=== PATIENT | male | born 1955 | race Caucasian/White ===

== ENCOUNTER → 2017-04-11 | Outpatient (CLI) | payer BC ==
[~2017-04-11] MED LIST: GADOXETATE DISODIUM (NON-WT BASED PROCEDURE) IV PRN; MULT-513 PO; OMEG10007 PO; PROT1POW PO
--- NOTE | 2017-04-11 08:45 | DIAGNOSTIC IMAGING REPORT ---
MRI LIVER COMBO CLINICAL HISTORY: ANEMIA,LIVER LESION TECHNIQUE: Imaging was performed prior to and following IV contrast injection. The patient was administered 10 cc of intravenous Eovist COMPARISON STUDY: CT scan the abdomen pelvis dated 08/15/2014 FINDINGS: There are scattered T2 bright nonenhancing hepatic lesions, consistent with small cysts. The largest is located within the left lobe measuring 1 cm. No splenic masses are visualized. There is a 4 mm T2 bright pancreatic tail lesion, likely representing a sidebranch IPMN. No solid renal masses are visualized. There are few tiny renal cysts the largest of which measures 6 mm. No adrenal masses are visualized. There is no pathologic adenopathy. There is no evidence of abdominal aortic dilatation. There is no ductal dilatation. IMPRESSION: 1. Small hepatic cysts, the largest of which measures 1 cm 2. 4 mm T2 bright pancreatic tail lesion, likely representing a side branch IPMN Electronically signed by: Mason Miller M.D. 04/11/2017 8:43 AM Dictated Date/Time: 04/11/2017 8:29 AM
== END | disposition home or self-care (01) ==
LOC: C.MRI 07:17
PROVIDERS: ATTEND Physician Assistant
DX: D50.0 Iron deficiency anemia secondary to blood loss (chronic) (principal); K76.9 Liver disease, unspecified

== ENCOUNTER → 2017-04-12 | Day surgery (SDC) | payer BC ==
[2017-04-11 11:20] VITALS: Ht 177.8 cm; Wt 77.3 kg
[~2017-04-12] VITALS: Ht 177.8 cm; Wt 77.3 kg
[~2017-04-12] MED LIST changes: +FENTANYL CITRATE INJ 50 MCG/1 ML 2 ML VIAL ONE; -GADOXETATE DISODIUM (NON-WT BASED PROCEDURE) IV PRN; +LIDOCAINE HCL 2% 2 ML VIAL (20MG/ML) ONE; +ONDANSETRON INJ 2 MG/ML 2 ML VIAL IV PRN; +PROPOFOL IV EMULSION 10 MG/ML 20 ML VIAL IV ONE
[2017-04-12 11:14] VITALS: TEMP 36.4
--- NOTE | 2017-04-12 11:22 | Endo History and Physical ---
History & Physical Date of Service: Apr 12, 2017. Chief Complaint: anemia due to possible blood loss Referring Physician: Tyra Henning PA-C History of Present Illness The patient presents for an upper endoscopy and colonoscopy to evaluate anemia. He has had several procedures in the past without a specific explanation. He denies having nausea or vomiting but does admit to epigastric discomfort. Past Surgical History Hx Cardiac Surgery: Yes (CARDIAC ABLATION) Hx Internal Defibrillator: No Hx Pacemaker: No Hx Abdominal Surgery: No Hx of Implantable Prosthesis: No Hx Post-Op Nausea and Vomiting: No Hx Cancer Surgery: Yes (BCC REMOVALS) Hx Thoracic Surgery: No Hx Orthopedic: No Hx Urinary Tract Surgery: No No abdominal surgeries Family History None Social History Smoking Status: Never Smoker Hx Substance Use: No Hx Alcohol Use: Yes (1 DRINK/WEEKEND) Allergies Coded Allergies: Monosodium Glutamate (Verified Allergy, Severe, NERVOUS, 04/11/17) NERVOUS CONDITION FOR 2-3 DAYS Morphine (Verified Allergy, Severe, COULD NOT URINATE, 04/11/17) Influenza Virus Vaccine H5N1 (Verified Allergy, Intermediate, PURITIS AND RASH, 04/11/17) Carbamazepine (Verified Allergy, Unknown, HIVES, 04/11/17) Current Medications Reported Home Medications Medications Dose Route/Sig Max Daily Dose Days Date Category [place]-3 (Fish Oil) 1 Ea Cap 1 Cap PO DAILY 04/11/17 Reported Protein 1 Pow Pow 1 Dose PO DAILY 04/11/17 Reported Mvi With Minerals (Multivitamins/Minerals) Tab 1 Tab PO DAILY 05/29/14 Reported Vital Signs Weight (Kilograms): 77.27 Height (Feet): 5 Height (Inches): 10 Date Time Temp Pulse Resp B/P (MAP) Pulse Ox O2 Delivery O2 Flow Rate FiO2 04/12/17 11:14 36.4 59 18 126/67 (86) 99 Room Air Physical Exam General Appearance: no apparent distress Respiratory/Chest: Auscultation: breath sounds normal Cardiovascular: Heart Auscultation: RRR Abdomen: Inspection & Palpation: soft Assessment and Plan Patient referred for upper endoscopy and colonoscopy seen anemia and epigastric discomfort. We've discussed the risks and benefits to include bleeding, infection, perforation and missed colon polyps.
--- NOTE | 2017-04-12 11:53 | Discharge Instructions ---
Endoscopy Patient Instructions Date / Procedure(s) Performed Apr 12, 2017. Colonoscopy, EGD Allergy Information Coded Allergies: Monosodium Glutamate (Verified Allergy, Severe, NERVOUS, 04/11/17) NERVOUS CONDITION FOR 2-3 DAYS Morphine (Verified Allergy, Severe, COULD NOT URINATE, 04/11/17) Influenza Virus Vaccine H5N1 (Verified Allergy, Intermediate, PURITIS AND RASH, 04/11/17) Carbamazepine (Verified Allergy, Unknown, HIVES, 04/11/17) Discharge Date / Findings Apr 12, 2017. Mild atrophy of the stomach, biopsied Normal appearing small intestine Diverticulosis of the left colon Internal hemorrhoids Medication Instructions Restart Stopped Medication(s): Reported Home Medications Medications Dose Route/Sig Max Daily Dose Days Date Category [place]-3 (Fish Oil) 1 Ea Cap 1 Cap PO DAILY 04/11/17 Reported Protein 1 Pow Pow 1 Dose PO DAILY 04/11/17 Reported Mvi With Minerals (Multivitamins/Minerals) Tab 1 Tab PO DAILY 05/29/14 Reported Provider Instructions Activity Restrictions - No exercising or heavy lifting for 24 hours. - Do not drink alcohol the day of the procedure. - Do not drive a car or operate machinery until the day after the procedure. - Do not make any important decisions or sign important papers in 24 hours after the procedure. Following Day: - Return to full activity which may include returning to work/school. Diet Start your diet with liquids and light foods (jello, soup, juice, toast). Then eat your usual diet if not nauseated. Treatment For Common After Affects For mild abdominal pain, bloating, or excessive gas: - Rest - Eat lightly - Lie on right side Follow-Up Information Follow-up with Tyra Henning PA-C as scheduled Await pathology results Begin an iron supplement twice daily for 6 weeks then 1 time daily Wireless capsule endoscopy to be ordered based on allergy Lab entered for celiac screening to be done in the next 1-2 weeks Anesthesia Information What You Should Know You have had a procedure that required some medicine to reduce anxiety and discomfort. This treatment is called moderate sedation. After receiving the treatment, you may be sleepy, but you will be able to breathe on your own. The effects of the treatment may last for several hours. Follow these instructions along with Activity/Diet recommendations noted above: * Do NOT do anything where dizziness or clumsiness would be dangerous. * Rest quietly at home today, then you can be up and about tomorrow. * Have a responsible person stay with you the rest of today. * You may have had an I.V. today. If so, you may take the dressing off later today. Recommendations Call your doctor if: * Trouble breathing * Continuous vomiting for more than 24 hours * Temperature above 101 degrees * Severe abdominal pain or bloating * Pain not relieved by pain medicine ordered * There is increased drainage or redness from any incision * A large amount of rectal bleeding greater than 2-3 tablespoons. (If you had a polyp/s removed or have hemorrhoids, a small amount of blood - from the rectum is to be expected.) * You have any unanswered questions or concerns. IN THE EVENT OF A SERIOUS EMERGENCY, GO TO THE NEAREST EMERGENCY ROOM Your discharge instructions were prepared by provider Halle Hansen. Patient Instructions Signature Page Carson Reyna Patient (or Guardian) Signature/Date: I have read and understand the instructions given to me by my caregivers. Caregiver/RN/Doctor Signature/Date: The above-named patient and/or guardian has received patient instructions on this date. + Original Patient Signature Page (only) stays with chart. Please make copy for patient.
--- NOTE | 2017-04-12 11:56 | GI REPORT ---
Procedure Date: 04/12/2017 11:20 AM Procedure: Upper GI endoscopy Indications: Iron deficiency anemia Medicines: Monitored Anesthesia Care Complications: No immediate complications. Estimated blood loss: Minimal. Estimated Blood Loss: Estimated blood loss was minimal. Procedure: Pre-Anesthesia Assessment: - Prior to the procedure, a History and Physical was performed, and patient medications, allergies and sensitivities were reviewed. The patient's tolerance of previous anesthesia was reviewed. - The risks and benefits of the procedure and the sedation options and risks were discussed with the patient. All questions were answered and informed consent was obtained. - Patient identification and proposed procedure were verified prior to the procedure by the physician, the nurse and the underwear finisher. The procedure was verified in the procedure room. - Pre-procedure physical examination revealed no contraindications to sedation. - ASA Grade Assessment: II - A patient with mild systemic disease. - After reviewing the risks and benefits, the patient was deemed in satisfactory condition to undergo the procedure. - The anesthesia plan was to use monitored anesthesia care (MAC). - Immediately prior to administration of medications, the patient was re-assessed for adequacy to receive sedatives. - The heart rate, respiratory rate, oxygen saturations, blood pressure, adequacy of pulmonary ventilation, and response to care were monitored throughout the procedure. - The physical status of the patient was re-assessed after the procedure. After obtaining informed consent, the endoscope was passed under direct vision. Throughout the procedure, the patient's blood pressure, pulse, and oxygen saturations were monitored continuously. The scope was introduced through the mouth, and advanced to the third part of duodenum. The upper GI endoscopy was accomplished without difficulty. The patient tolerated the procedure well. Findings: The examined esophagus was normal. The Z-line was regular and was found 40 cm from the incisors. Diffuse atrophic mucosa was found in the entire examined stomach. Biopsies were taken with a cold forceps for histology. Estimated blood loss was minimal. The examined duodenum was normal. Biopsies for histology were taken with a cold forceps for evaluation of celiac disease. Estimated blood loss was minimal. Impression: - Normal esophagus. - Z-line regular, 40 cm from the incisors. - Gastric mucosal atrophy. Biopsied. - Normal examined duodenum. Biopsied. Recommendation: - Perform a colonoscopy today. - Await pathology results. Halle Hansen D.O. Halle Hansen DO 04/12/2017 11:55:41 AM This report has been signed electronically. Note Initiated On: 04/12/2017 11:20 AM I attest to the content of the Intraoperative Record and orders documented therein, exceptions below
--- NOTE | 2017-04-12 12:02 | GI REPORT ---
Procedure Date: 04/12/2017 11:33 AM Procedure: Colonoscopy Indications: High risk colon cancer surveillance: Personal history of colonic polyps, Iron deficiency anemia Medicines: Monitored Anesthesia Care Complications: No immediate complications. Estimated blood loss: Minimal. Estimated Blood Loss: Estimated blood loss was minimal. Procedure: Pre-Anesthesia Assessment: - Prior to the procedure, a History and Physical was performed, and patient medications, allergies and sensitivities were reviewed. The patient's tolerance of previous anesthesia was reviewed. - The risks and benefits of the procedure and the sedation options and risks were discussed with the patient. All questions were answered and informed consent was obtained. - Patient identification and proposed procedure were verified prior to the procedure by the physician, the nurse and the sales representative church furniture. The procedure was verified in the procedure room. - Pre-procedure physical examination revealed no contraindications to sedation. - ASA Grade Assessment: II - A patient with mild systemic disease. - After reviewing the risks and benefits, the patient was deemed in satisfactory condition to undergo the procedure. - The anesthesia plan was to use monitored anesthesia care (MAC). - Immediately prior to administration of medications, the patient was re-assessed for adequacy to receive sedatives. - The heart rate, respiratory rate, oxygen saturations, blood pressure, adequacy of pulmonary ventilation, and response to care were monitored throughout the procedure. - The physical status of the patient was re-assessed after the procedure. After I obtained informed consent, the scope was passed under direct vision. Throughout the procedure, the patient's blood pressure, pulse, and oxygen saturations were monitored continuously. The On-site loaner was introduced through the anus and advanced to the terminal ileum. The colonoscopy was performed without difficulty. The patient tolerated the procedure well. The quality of the bowel preparation was good. Findings: The perianal and digital rectal examinations were normal. Pertinent negatives include normal sphincter tone. The terminal ileum appeared normal. Normal cecal retroflexion Multiple medium-mouthed diverticula were found in the sigmoid colon and in the descending colon. Internal hemorrhoids were found during retroflexion. The hemorrhoids were mild. The exam was otherwise without abnormality. Impression: - The examined portion of the ileum was normal. - Mild diverticulosis in the sigmoid colon and in the descending colon. - Internal hemorrhoids. - The examination was otherwise normal. - No specimens collected. Recommendation: - Discharge patient to home (ambulatory). - Advance diet as tolerated today. - Perform a serologic workup for celiac disease. - To visualize the small bowel, perform video capsule endoscopy at appointment to be scheduled. - Repeat colonoscopy in 5 years for surveillance. Halle Hansen D.O. Halle Hansen, DO 04/12/2017 12:02:16 PM This report has been signed electronically. Note Initiated On: 04/12/2017 11:33 AM I attest to the content of the Intraoperative Record and orders documented therein, exceptions below
--- NOTE | 2017-04-12 12:15 | Anesthesiology Progress Note ---
Anesthesia Post Op Note Date & Time Apr 12, 2017 at 12:15 Vital Signs Pain Intensity: 0 Vital Signs Past 12 Hours Date Time Temp Pulse Resp B/P (MAP) Pulse Ox O2 Delivery O2 Flow Rate FiO2 04/12/17 11:59 59 18 100/66 (77) 100 Room Air 04/12/17 11:54 52 18 88/51 (63) 99 Room Air 04/12/17 11:14 36.4 59 18 126/67 (86) 99 Room Air Notes Mental Status: alert / awake / arousable, participated in evaluation Pt Amnestic to Procedure: Yes Nausea / Vomiting: adequately controlled Pain: adequately controlled Airway Patency, RR, SpO2: stable & adequate BP & HR: stable & adequate Hydration State: stable & adequate Anesthetic Complications: no major complications apparent
[2017-04-12 12:30] VITALS: BP 110/66; PULSE 52; O2SAT 100
== END | disposition home or self-care (01) ==
LOC: C.GI 10:59
PROVIDERS: ATTEND Internal Medicine
DX: Z12.11 Encounter for screening for malignant neoplasm of colon (principal); Z86.010 Personal history of colon polyps; D50.9 Iron deficiency anemia, unspecified; K57.30 Diverticulosis of large intestine without perforation or abscess without bleeding; K64.8 Other hemorrhoids; K29.50 Unspecified chronic gastritis without bleeding
CPT/HCPCS: 43239; G0105

== ENCOUNTER 2021-06-19 09:06 | Inpatient (IN) ==
[2021-06-19] MEDS ORDERED: LORazepam 2 MG/4 ML VIAL ONE (09:20)
[2021-06-19] MEDS ORDERED: LORazepam 2 MG/ML VIAL (IM USE) ONE (09:21)
--- NOTE | 2021-06-19 09:43 | Emergency Department Note ---
History of Present Illness General Chief Complaint: Arrhythmia/Palpitations Stated Complaint: SWEATY/SOB/RAPID HEARTBEAT Time Seen by Provider: 06/19/21 09:14 History of Present Illness Provider Complaint: + "heart racing" and + palpitations Time: 06:15 Duration: + Worsening Severity: severe Maximum Pain Intensity: 9 Current Pain Intensity: 9 Context: + occurred during rest Arrhythmia history: + history of ablation, + history of electrical cardioversion and + other (atrial flutter) Associated symptoms: + chest pain, + near-syncope and + nausea; no shortness of breath, no cough or no paresthesias Home Medications Medication Instructions Recorded Confirmed Type aspirin 325 mg tablet (Pietro 325 mg PO Q6H PRN 06/19/21 06/19/21 History Aspirin) Allergies Allergy/AdvReac Type Severity Reaction Status Date / Time monosodium glutamate Allergy Severe NERVOUS Verified 06/19/21 10:55 morphine Allergy Severe COULD NOT Verified 06/19/21 10:55 URINATE influenza virus vaccine, Allergy Intermediate PURITIS Verified 06/19/21 10:55 specific AND RASH carbamazepine Allergy Unknown HIVES Verified 06/19/21 10:55 Past Med/Surg History Medical History Atrial flutter No pertinent family history Small bowel obstruction Surgical History History of cardiac radiofrequency ablation (RFA) Hx of knee surgery Social History Smoking Status: Never smoker Hx Alcohol Use: No Hx Substance Use: No Preferred Language: Urdu Communication Ability: Effective Furniture Repairer Required: No Beliefs That Will Affect Care: None Current Living Situation: Spouse Other Information That Helps Us Care for You: No Feels Safe at Home: Yes Safety Concerns: Feels Safe At This Time Assistive Devices: None Review of Systems A total of 10 systems reviewed and were otherwise negative Physical Exam Vital Signs: Vital Signs - 24 hr 06/19/21 09:08 06/19/21 09:20 06/19/21 09:22 Temperature 36.0 C L Temperature Source Temporal Artery Sc an Pulse Rate 195 H Pulse Rate [Apical ] 199 H 194 H Pulse Rate from Sp O2 Sensor Respiratory Rate 20 18 12 Respiratory Effort / Characteristics Non-Labored Sponta neous Respiratory Depth Normal Respiratory Patter n Regular Blood Pressure 69/45 L Blood Pressure [Ri ght Arm] 77/63 L 92/63 L Blood Pressure Alexandra n 53 Blood Pressure Alexandra n [Right Arm] 67 72 Pulse Oximetry 97 93 97 Oxygen Delivery Me thod Room Air Sepsis Recent Feve r Within 48 Hours No Sepsis New/Unexpla ined Change in Men kale Status No Sepsis Action Take n by Nursing No Action Required 06/19/21 09:25 06/19/21 09:27 06/19/21 09:30 Temperature Temperature Source Pulse Rate 56 L Pulse Rate [Apical ] 55 L Pulse Rate from Sp O2 Sensor 56 L Respiratory Rate 16 13 Respiratory Effort / Characteristics Respiratory Depth Respiratory Patter n Blood Pressure 101/70 Blood Pressure [Ri ght Arm] 111/65 Blood Pressure Alexandra n 80 Blood Pressure Alexandra n [Right Arm] 80 Pulse Oximetry 96 100 Oxygen Delivery Me thod Room Air Sepsis Recent Feve r Within 48 Hours Sepsis New/Unexpla ined Change in Men kale Status Sepsis Action Take n by Nursing 06/19/21 09:52 06/19/21 10:00 06/19/21 10:01 Temperature Temperature Source Pulse Rate 63 55 L Pulse Rate [Apical ] 56 L Pulse Rate from Sp O2 Sensor Respiratory Rate 16 14 14 Respiratory Effort / Characteristics Respiratory Depth Respiratory Patter n Blood Pressure 109/65 100/61 Blood Pressure [Ri ght Arm] 100/61 Blood Pressure Alexandra n 79 74 Blood Pressure Alexandra n [Right Arm] 74 Pulse Oximetry 99 98 99 Oxygen Delivery Me thod Room Air Sepsis Recent Feve r Within 48 Hours Sepsis New/Unexpla ined Change in Men kale Status Sepsis Action Take n by Nursing 06/19/21 10:15 06/19/21 10:30 Temperature Temperature Source Pulse Rate 57 L 62 Pulse Rate [Apical ] Pulse Rate from Sp O2 Sensor Respiratory Rate 12 14 Respiratory Effort / Characteristics Respiratory Depth Respiratory Patter n Blood Pressure 94/62 L Blood Pressure [Ri ght Arm] Blood Pressure Alexandra n 72 Blood Pressure Alexandra n [Right Arm] Pulse Oximetry 100 97 Oxygen Delivery Me thod Sepsis Recent Feve r Within 48 Hours Sepsis New/Unexpla ined Change in Men kale Status Sepsis Action Take n by Nursing Physical Exam: Physical Exam GENERAL: Patient appears distressed and ill. Tachycardic patient appears distressed and ill. HENT: Exam performed. - Head: Normocephalic and atraumatic. - Right Ear: External ear normal. No mastoid tenderness. - Left Ear: External ear normal. No mastoid tenderness. - Mouth/Throat: The oropharynx is clear and moist. No trismus in the jaw. No dental abscesses or uvula swelling. No oropharyngeal exudate or tonsillar abscesses. EYES: Conjunctivae and EOM are normal. Pupils are equal, round, and reactive to light. Right eye exhibits no discharge. Left eye exhibits no discharge. No scleral icterus. NECK: Normal range of motion. Neck supple. No JVD present. No spinous process tenderness present. No carotid bruit present. No rigidity. No tracheal deviation and normal range of motion present. No Brudzinski's sign and no Kernig's sign noted. CV: Tachycardic rate, irregular rhythm, normal heart sounds and intact distal pulses. There is no peripheral edema. Palpable radial pulses bue. PULM/CHEST: Effort normal and breath sounds normal. No respiratory distress. No stridor. He has no wheezes. He has no rales. - Chest Wall: He exhibits no tenderness. ABD: The abdomen is soft. Bowel sounds are normal. He has no distension. No mass is present. There is no tenderness. There is no rebound, no guarding, no Lindsay's sign and no tenderness at McBurney's point. Rovsig negative. MUSC/SKEL: Normal range of motion. There is no peripheral edema, tenderness or deformity. LYMPH: No cervical adenopathy. NEURO: He is alert and oriented to person, place, and time. He has normal st rength. No cranial nerve deficit or sensory deficit. Coordination and gait normal. GCS eye subscore is 4. GCS verbal subscore is 5. GCS motor subscore is 6. Cerebellar tests wnl. SKIN: Skin is warm and dry. He is not diaphoretic. PSYCH: He has a normal mood and affect. Behavior is normal. Judgment and thought content normal. Procedures Free Text Procedures Indication: Hypotensive patient in a irregular rhythm that is narrow complex and tachycardic with chest pain Written consent was obtained after the risks and benefits were explained, including but not limited to pain, thermal burn, allergic reaction, aspiration, airway obstruction, laryngospasm, infection, hypotension, and cardiorespiratory arrest. At this time, the risks of the procedure are less than the risks of NOT performing the procedure. A time out was taken and the correct patient and procedure identified. The patient was on 100% via NRB and end tidal CO2 monitoring prior to the procedure. Suction, airway equipment, medications, respiratory equipment, ACLS cart, and appropriate personnel were prepared prior to the initiation of the procedure. Sedation was achieved utilizing []. The biphasic defibrillator was set to [] joules of energy and synched. After confirmation of sedation and "all clear" safety check the synchronized shock was delivered. This resulted in successful conversion of the dysrhythmia back into sinus rhythm. See nursing notes for dosages and times. There were no complications and the patient recovered uneventfully from the procedure. Course Course 09: The patient was evaluated in room A1. A complete history and physical exam was performed Cardiac monitoring: An order was placed for continuous cardiac monitoring. The monitor shows a rate of 190 with irregurlar narrow rhythm Patient was immediately brought to the resuscitation bay. Large-bore IV access was obtained. Patient was hypotensive and reporting chest pain that was progres sively worsening and an irregular narrow tachycardic rhythm. Decision was made to cardiovert. Patient was given 2 mg of IV and cardioverted with 100 J. See procedure note. Cardioversion was successful and the patient's blood pressure improved and his heart rate improved. Patient went into a sinus arrhythmia with a rate in the 50s. The patient reported that this chest pain resolved after cardioversion. Will conduct labs and imaging at this time. Patient states he has a history of atrial flutter and has had to have cardiac ablations in the past. He also states he needed to be cardioverted in the past. Patient states he does not regularly follow-up with a certified flex endoscope reprocessor and is not on any blood thinners. 1045: Vital signs stable. Patient reports no chest pain, palpitations or difficulty breathing. Labs and imaging are within normal limits. EKG does show some mild ST depression. Patient is again reporting no chest discomfort after being cardioverted. Patient was advised to be admitted to the hospital however both he and the express very large concerns about being admitted with the recent COVID-19 spike and are asking not to be admitted unless absolutely necessary. I did come up with a alternative plan in both the patient, , and I agree to conduct delta troponin III hours after the first set of cardiac enzymes, if positive the patient agrees to be admitted and if negative the patient will be discharged with follow-up with his certified flex endoscope reprocessor Dr. Renteria outpatient. 1123: Vital signs stable. The patient and are reluctant to stay in the hospital as above. Given this I contacted the [facility] cardiology team to make them aware of the patient discussed his case and possibly set up close outpatient follow-up. I discussed the case with Dr. Gallardo and he agrees with my initial assessment that the patient should be admitted to the hospital for further Cardiologic work-up. I discussed this with the patient and the at bedside and they are now in agreement to stay in the hospital. Will contact [facility] hospitalist team. Administered Medications Sodium Chloride (Nss 1000ml) 1,000 mls @ 60 mls/hr IV .[id number] LIBBY Stop: 07/19/21 13:47 Last Admin: 06/19/21 16:55 Dose: 60 mls/hr Documented by: [id number] Discontinued Medications Ioversol (Optiray 320 125ml) 121 ml IV ONCE ONE Stop: 06/19/21 09:53 Last Admin: 06/19/21 09:53 Dose: 121 ml Documented by: [id number] Lorazepam (Lorazepam 2 Mg/4 Ml Vial) Confirm Administered Dose 2 mg .ROUTE .STK- MED ONE Stop: 06/19/21 09:21 Last Admin: 06/19/21 09:28 Dose: Not Given Documented by: [id number] Lorazepam (Lorazepam 2 Mg/Ml Vial (Im Use)) Confirm Administered Dose 2 mg .ROUTE .STK-MED ONE Stop: 06/19/21 09:22 Last Admin: 06/19/21 09:23 Dose: 2 mg Documented by: [id number] Medical Decision Making Laboratory Data Result diagrams: 06/19/21 09:22 06/19/21 09:22 Lab Results 06/19/21 06/19/21 06/19/21 Range/Units 09:22 09:22 09:35 WBC 6.52 (4.8-10.8) K/uL RBC 5.28 (4.7-6.1) M/uL Hgb 16.0 (14.0-18.0) g/dL POC Hgb 15.3 (14.0-18.0) g/dl Hct 46.9 (42-52) % POC Hct 45 (42-52) % MCV 88.8 (80-100) fL MCH 30.3 (25-34) pg MCHC 34.1 (32-36) g/dL RDW Std Deviation 46.6 H (36.4-46.3) fL RDW Coeff of Yoni 14.2 (11.5-14.5) % Plt Count 286 (130-400) K/uL MPV 11.3 H (7.4-10.4) fL Immature Gran % (Auto) 0.0 % Neut % (Auto) 60.5 % Lymph % (Auto) 29.8 % [place] % (Auto) 7.5 % Eos % (Auto) 1.7 % Baso % (Auto) 0.5 % Neut # (Auto) 3.95 (1.4-6.5) K/uL Lymph # (Auto) 1.94 (1.2-3.4) K/uL [place] # (Auto) 0.49 (0.11-0.59) K/uL Eos # (Auto) 0.11 (0-0.5) K/uL Baso # (Auto) 0.03 (0-0.2) K/uL Immature Gran # (Auto) 0.00 (0.00-0.02) K/uL POC Sodium 143 (135-144) mmol/L Sodium 141 (136-145) mmol/L POC Potassium 3.9 (3.3-5.0) mmol/L Potassium 3.9 (3.5-5.1) mmol/L POC Chloride 105 (101-112) mmol/L Chloride 109 H (98-107) mmol/L Carbon Dioxide 24 (21-32) mmol/L POC Total CO2 24 (24-31) mmol/L Anion Gap 8.0 (3-11) POC Anion Gap 18.0 (16-25) mmol/L POC BUN 23 H (7-18) mg/dl BUN 20 H (7-18) mg/dl Creatinine 1.01 (0.6-1.4) mg/dl POC Creatinine 0.9 (0.6-1.3) mg/dl Est Cr Clr Drug Dosing 71.9 ml/min Est GFR ( Amer) 88.8 ml/min Est GFR (Non-Af Amer) 76.6 ml/min BUN/Creatinine Ratio 20.1 H (10-20) Glucose 114 H (70-99) mg/dl POC Glucose (other) 118 H (70-99) mg/dl Calcium 9.2 (8.5-10.1) mg/dl POC Ioniz Calcium Jamaal 1.17 (1.12-1.32) mmol/l Magnesium 2.2 (1.8-2.4) mg/dl Troponin I < 0.015 (0-0.045) ng/ml Lipase 156 (73-393) U/L SARS-CoV-2, RNA, NAAT (NEGATIVE) 06/19/21 Range/Units 11:27 WBC (4.8-10.8) K/uL RBC (4.7-6.1) M/uL Hgb (14.0-18.0) g/dL POC Hgb (14.0-18.0) g/dl Hct (42-52) % POC Hct (42-52) % MCV (80-100) fL MCH (25-34) pg MCHC (32-36) g/dL RDW Std Deviation (36.4-46.3) fL RDW Coeff of Yoni (11.5-14.5) % Plt Count (130-400) K/uL MPV (7.4-10.4) fL Immature Gran % (Auto) % Neut % (Auto) % Lymph % (Auto) % [place] % (Auto) % Eos % (Auto) % Baso % (Auto) % Neut # (Auto) (1.4-6.5) K/uL Lymph # (Auto) (1.2-3.4) K/uL [place] # (Auto) (0.11-0.59) K/uL Eos # (Auto) (0-0.5) K/uL Baso # (Auto) (0-0.2) K/uL Immature Gran # (Auto) (0.00-0.02) K/uL POC Sodium (135-144) mmol/L Sodium (136-145) mmol/L POC Potassium (3.3-5.0) mmol/L Potassium (3.5-5.1) mmol/L POC Chloride (101-112) mmol/L Chloride (98-107) mmol/L Carbon Dioxide (21-32) mmol/L POC Total CO2 (24-31) mmol/L Anion Gap (3-11) POC Anion Gap (16-25) mmol/L POC BUN (7-18) mg/dl BUN (7-18) mg/dl Creatinine (0.6-1.4) mg/dl POC Creatinine (0.6-1.3) mg/dl Est Cr Clr Drug Dosing ml/min Est GFR ( Amer) ml/min Est GFR (Non-Af Amer) ml/min BUN/Creatinine Ratio (10-20) Glucose (70-99) mg/dl POC Glucose (other) (70-99) mg/dl Calcium (8.5-10.1) mg/dl POC Ioniz Calcium Jamaal (1.12-1.32) mmol/l Magnesium (1.8-2.4) mg/dl Troponin I (0-0.045) ng/ml Lipase (73-393) U/L SARS-CoV-2, RNA, NAAT NEGATIVE (NEGATIVE) Imaging Data Radiologist's Impression: Chest CTA 06/19/21 09:26 CT angio chest PE protocol CLINICAL HISTORY: Chest pain, tachycardia TECHNIQUE: Multidetector row helical CT of the chest was performed. Coronal and sagittal reformations were obtained. Automated dose lowering techniques and/or adjustment according to patient size were utilized for this exam. Comparison: None available at the time of this dictation. FINDINGS: Lungs and pleura: A few scattered blebs are seen, most prominent at the apices. Heart and pericardium: Heart size is normal. No pericardial effusion. Vessels: No evidence of pulmonary embolism. Mediastinum and linnea: Unremarkable. Chest wall and lower neck: Unremarkable. Abdomen: Unremarkable. Bones: Unremarkable. IMPRESSION: No acute abnormalities and in particular no evidence of pulmonary embolism. ACT 112: Negative or not required by law. Electronically signed by: Mariaon Gusman M.D. 06/19/2021 9:58 AM Chest X-Ray 06/19/21 09:26 XR chest 1V portable CLINICAL HISTORY: Atypical chest pain TECHNIQUE: Single frontal radiograph of the chest was obtained. Comparison: Comparison is made to chest and abdomen radiographs 03/30/2016 FINDINGS: No lines and tubes are seen. The cardiomediastinal silhouette is normal. The lungs are clear. No evidence of pleural effusion or pneumothorax. IMPRESSION: No acute chest disease. ACT 112: Negative or not required by law. Electronically signed by: Mariano Gusman M.D. 06/19/2021 9:42 AM ECG Data Additional Comments: EKG #1 at 0918: SVT with a rate of 198. QRS [address] elevation in aVR. ST depression in leads II, III, aVF, V3 through V6. EKG #2 at 0924 status post cardioversion: Sinus arrhythmia with rate of 61. FL QRS and QTc intervals within normal limits. PVCs present. Mild ST depression in leads II, III, aVF, V4 through V6. EKG #3 at 0927: Sinus arrhythmia with rate of 59. FL QRS and QTc intervals within normal limits. Mild ST depression in leads II, III, aVF, V4 through V6. MDM Narrative 0914: The patient was evaluated in room A1. A complete history and physical exam was performed Cardiac monitoring: An order was placed for continuous cardiac monitoring. The monitor shows a rate of 190 with irregurlar narrow rhythm Patient was immediately brought to the resuscitation bay. Large-bore IV access was obtained. Patient was hypotensive and reporting chest pain that was progressively worsening and an irregular narrow tachycardic rhythm. Decision was made to cardiovert. Patient was given 2 mg of IV and cardioverted with 100 J. See procedure note. Cardioversion was successful and the patient's blood pressure improved and his heart rate improved. Patient went into a sinus arrhythmia with a rate in the 50s. The patient reported that this chest pain resolved after cardioversion. Will conduct labs and imaging at this time. Patient states he has a history of atrial flutter and has had to have cardiac ablations in the past. He also states he needed to be cardioverted in the past. Patient states he does not regularly follow-up with a certified flex endoscope reprocessor and is not on any blood thinners. 1045: Vital signs stable. Patient reports no chest pain, palpitations or difficulty breathing. Labs and imaging are within normal limits. EKG does show some mild ST depression. Patient is again reporting no chest discomfort after being cardioverted. Patient was advised to be admitted to the hospital however both he and the express very large concerns about being admitted with the r ecent COVID-19 spike and are asking not to be admitted unless absolutely necessary. I did come up with a alternative plan in both the patient, , and I agree to conduct delta troponin III hours after the first set of cardiac enzymes, if positive the patient agrees to be admitted and if negative the patient will be discharged with follow-up with his certified flex endoscope reprocessor Dr. Renteria outpatient. 1123: Vital signs stable. The patient and are reluctant to stay in the hospital as above. Given this I contacted the [facility] cardiology team to make them aware of the patient discussed his case and possibly set up close outpatient follow-up. I discussed the case with Dr. Gallardo and he agrees with my initial assessment that the patient should be admitted to the hospital for further Cardiologic work-up. I discussed this with the patient and the at bedside and they are now in agreement to stay in the hospital. Will contact [facility] hospitalist team. Impression & Plan Narrow complex tachycardia, Chest pain Critical Care Time Critical Care Time: Yes Total Critical Care Time: 54 I have personally spent greater than 54 minutes of critical care time in the direct management of this patient. This includes bedside care, interpretation of diagnostic studies, and testing, discussion with consultants, patient, and family members, and other required patient management activities. This 54 minutes is in excess of all separately billable procedures. Discharge Plan Visit Data Chief Complaint: Arrhythmia/Palpitations Stated Complaint: SWEATY/SOB/RAPID HEARTBEAT ED Provider: Jl Merino Discharge Problem: Narrow complex tachycardia, Chest pain Patient Disposition: Admitted As Inpatient Discharge Instructions Interventions: ED Discharge Assessment Last Done: 06/19/21 13:19 Discharge Problem: Chest pain Qualifiers: Chest pain type: unspecified Qualified Code(s): R07.9 - Chest pain, unspecified
[2021-06-19 09:47] LABS: iSTAT Creatinine 0.9 mg/dl (0.6-1.3); iSTAT Hemoglobin 15.3 g/dl (14.0-18.0); iSTAT Ionized Calcium 1.17 mmol/l (1.12-1.32); iSTAT Potassium 3.9 mmol/L (3.3-5.0)
[2021-06-19] MEDS ORDERED: OPTIRAY 320 125ml IV ONE (09:52)
[2021-06-19 09:54] LABS: Basophils # (auto) 0.03 K/uL (0-0.2); Basophils % (auto) 0.5 %; Eosinophils # (auto) 0.11 K/uL (0-0.5); Eosinophils % (auto) 1.7 %; Hematocrit (blood only) 46.9 % (42-52); Lymphocytes # (auto) 1.94 K/uL (1.2-3.4); Lymphocytes % (auto) 29.8 %; Mean Corpuscular Hemoglobin 30.3 pg (25-34); Mean Corpuscular Hgb Conc 34.1 g/dL (32-36); Mean Corpuscular Volume 88.8 fL (80-100); Mean Platelet Volume 11.3 fL (7.4-10.4); Monocytes # (auto) 0.49 K/uL (0.11-0.59); Monocytes % (auto) 7.5 %; Neutrophils # (auto) 3.95 K/uL (1.4-6.5); Neutrophils % (auto) 60.5 %; Platelet Count 286 K/uL (130-400); RDW Coefficient of Variation 14.2 % (11.5-14.5); RDW Standard Deviation 46.6 fL (36.4-46.3); Red Blood Count 5.28 M/uL (4.7-6.1); White Blood Count 6.52 K/uL (4.8-10.8)
--- NOTE | 2021-06-19 09:59 | CT Scan Report ---
CT angio chest PE protocol CLINICAL HISTORY: Chest pain, tachycardia TECHNIQUE: Multidetector row helical CT of the chest was performed. Coronal and sagittal reformations were obtained. Automated dose lowering techniques and/or adjustment according to patient size were u tilized for this exam. Comparison: None available at the time of this dictation. FINDINGS: Lungs and pleura: A few scattered blebs are seen, most prominent at the apices. Heart and pericardium: Heart size is normal. No pericardial effusion. Vessels: No evidence of pulmonary embolism. Mediastinum and linnea: Unremarkable. Chest wall and lower neck: Unremarkable. Abdomen: Unremarkable. Bones: Unremarkable. IMPRESSION: No acute abnormalities and in particular no evidence of pulmonary embolism. ACT 112: Negative or not required by law. Electronically signed by: Mariano Gusman M.D. 06/19/2021 9:58 AM
[2021-06-19 10:14] LABS: BUN Creatinine Ratio 20.1 (10-20); Blood Urea Nitrogen 20 mg/dl (7-18); Calcium 9.2 mg/dl (8.5-10.1); Carbon Dioxide 24 mmol/L (21-32); Chloride 109 mmol/L (98-107); Creatinine Clr Calc Pharmacy 71.9 ml/min; Est GFR (African American) 88.8 ml/min; Est GFR (Non-African American) 76.6 ml/min; Glucose 114 mg/dl (70-99); Lipase 156 U/L (73-393); Magnesium 2.2 mg/dl (1.8-2.4); Potassium 3.9 mmol/L (3.5-5.1); Sodium 141 mmol/L (136-145)
[2021-06-19 10:21] LABS: Troponin I < 0.015 ng/ml (0-0.045)
--- NOTE | 2021-06-19 12:29 | History & Physical Report ---
Date of Service June 19, 2021 Assessment & Plan (1) SVT (supraventricular tachycardia): (2) Hypotension: Plan: 65-year-old male with history of proximal atrial fibrillation, borderline tachybradycardia syndrome, status post ablation 2013, history of iron deficiency anemia, atrophic gastritis, presenting with palpitations this morning at around 6:15 AM. POSSIBLE SVT, STATUS POST ELECTROCARDIOVERSION HISTORY OF PAROXYSMAL A. FIB, BORDERLINE TACHYBRADYCARDIA SYNDROME, STATUS POST ABLATION 2013 Cardioversion, patient remains in sinus rhythm heart rate low 60s Blood pressure 98/68, asymptomatic Initial troponin negative, troponin x2 pending Echocardiogram [id number] score 1, no need for anticoagulation Hold off on any beta-blockers at this point due to borderline heart rate Cardiology service consulted, discussed with Dr. Gallardo, appreciate the recomm endations HISTORY OF IRON DEFICIENCY ANEMIA ATROPHIC GASTRITIS Patient follows with [facility] charge weigher Dr. Wong, has received IV iron in the past, last IV iron transfusion was a year ago as per patient Patient reports feeling fatigued lately despite hemoglobin and iron level being in the low normal range Hemoglobin 15 We'll May need IV iron transfusion during this admission CODE STATUS Full code as per patient DVT prophylaxis SCDs for now Disposition Anticipate discharge to home medically stable plan of care discussed with patient and his in detail and at length all questions answered they are understanding, agreeable, comfortable with the plan of care History of Present Illness Primary Care Provider: Abelardo Parker, 65-year-old male with history of proximal atrial fibrillation, borderline tachybradycardia syndrome, status post ablation 2013, history of iron deficiency anemia, atrophic gastritis, presenting with palpitations this morning at around 6:15 AM. Patient follows with [facility] cardiology service under Dr. Gómez. As per patient, he was doing fine until last March when he started to have intermittent palpitations. He has a heart rate monitor connected to his phone, which reveals heart rate of 190s during these palpitation episodes. Episodes last for about 5 minutes. He would take 2 full dose aspirin when he experiences the symptoms. This morning at around 6:15 AM, the patient was awakened because of palpitations, chest discomfort. No nausea vomiting, sweating, shortness of breath,. He felt dizzy when standing. At the ER, the patient was noted to have heart rate in the 190s, systolic blood pressure in the 70s, EKG showing possible SVT/A. fib in RVR. He was successfully cardioverted. Repeat EKG after procedure showed sinus bradycardia in the 150s. On exam, the patient was seen with his at the bedside. Patient is awake, alert, oriented x3, comfortable, not in distress. He reports relief of symptoms after cardioversion. No active palpitations, chest pain, shortness of breath, nausea vomiting during my exam. He does report feeling little bit dizzy but also received Ativan before the procedure. Patient reports that he has been very careful with his diet to avoid abdominal pain in light of his history of atrophic gastritis. No report of melena or hematochezia. No other symptoms. Allergies Allergy/AdvReac Type Severity Reaction Status Date / Time monosodium glutamate Allergy Severe NERVOUS Verified 06/19/21 10:55 morphine Allergy Severe COULD NOT Verified 06/19/21 10:55 URINATE influenza virus vaccine, Allergy Intermediate PURITIS Verified 06/19/21 10:55 specific AND RASH carbamazepine Allergy Unknown HIVES Verified 06/19/21 10:55 Home Medications Medication Instructions Recorded Confirmed Type aspirin 325 mg tablet (Pietro 325 mg PO Q6H PRN 06/19/21 06/19/21 History Aspirin) Past Med/Surg History Medical History Atrial flutter No pertinent family history Small bowel obstruction Surgical History History of cardiac radiofrequency ablation (RFA) Hx of knee surgery Social History Smoking Status: Never smoker Feels Safe at Home: Yes Review of Systems Review of Systems: all noted and negative except for above Physical Exam Physical Exam: General- oriented x 3, not in distress, speaks in sentences with no effort or accessory muscle use Head- atraumatic Eyes- PERRL, EOMI, anicteric ENT- oropharynx clear Neck- supple, no JVD, no adenopathy, no thyromegaly; carotids +2/2, no bruits appreciated Lungs- clear to auscultation bilaterally, no rales/wheezes Heart- normal rate, regular rhythm; no murmur, no gallop, no rub appreciated Abdomen- normal bowel sounds, nondistended, soft, nontender, no masses or hepatosplenomegaly Extremities- no pretibial edema, no calf tenderness; peripheral pulses intact Neuro- alert, oriented x 3; CN 2-12 grossly intact; motor 5/5 bilaterally;sensation 100% on all extremities; no other gross focal neurologic deficits Skin- warm & dry Results & Data Results & Data ([facility] [place]) Vital Signs (Past 12 Hours) Vital Signs Temp Pulse Pulse Resp BP BP Pulse Ox 06/19/21 10:30 62 14 94/62 L 97 06/19/21 10:15 57 L 12 100 06/19/21 10:01 56 L 14 100/61 99 06/19/21 10:00 55 L 14 100/61 98 06/19/21 09:52 63 16 109/65 99 06/19/21 09:30 56 L 13 101/70 100 06/19/21 09:25 55 L 16 111/65 96 06/19/21 09:22 194 H 12 92/63 L 97 06/19/21 09:20 199 H 18 77/63 L 93 06/19/21 09:08 36.0 C L 195 H 20 69/45 L 97 all noted and reviewed including below Code Status & VTE Plan VTE Prophylaxis Plan VTE Prophylaxis will be ordered: Yes
[2021-06-19] MEDS ORDERED: ACETAMINOPHEN 325 MG TAB PO PRN (13:48)
[2021-06-19 15:51] LABS: Ferritin 25.4 ng/ml (8-388); Troponin I 0.684 ng/ml (0-0.045)
[2021-06-19 15:58] LABS: Folate (Folic Acid) > 20.00 ng/ml (>5.38); Vitamin B12 516 pg/ml (193-986)
[2021-06-19] MEDS ORDERED: IRON SUCROSE 300 MG in SODIUM CHLORIDE 0.9% 250 ML IV STA (16:26)
[2021-06-19] MEDS: SODIUM CHLORIDE 0.9% 1000ML 1,000 ML IV SCH (16:55)
--- NOTE | 2021-06-19 22:23 | Cardiology Consultation ---
Date of Consultation June 19, 2021 Assessment & Plan (1) SVT (supraventricular tachycardia): Hx of aflutter, poorly tolerated, s/p ablation noncompliant with cardiac follow up for 18 months now presents with SVT s/p cardioverion in the ER hx of TBS, not tolerant of AV rosio blocking agents in the past significantly symptomatic with lightheadedness and chest pain pt and asking if anemia would be a contributing factor and if we could facilitate transfusion, will defer to primary team given baseline bradycardia, unable to add AV rosio blocking agents at this time no role for anticoagulation with SVT obtain echo monitor on tele overnight may need DDD placement to facilitate AV rosio blocking to prevent SVT in the setting of TBS further recommendations to follow History of Present Illness Reason for Consultation: Tachycardia, symptomatic Requesting Physician: Dr. Merino Attending Physician: Nacho Farrar MD History of Present Illness 65 yo male presents to [facility] ER in the early AM of 06.19 with complaints of palitations. States that he had some brief episodes of palipations last evening that were sporadic. Progressed to the point that he woke him up at approx 630 with palpitations,lightheadedness and chest discomfort Allergies Allergy/AdvReac Type Severity Reaction Status Date / Time monosodium glutamate Allergy Severe NERVOUS Verified 06/19/21 10:55 morphine Allergy Severe COULD NOT Verified 06/19/21 10:55 URINATE influenza virus vaccine, Allergy Intermediate PURITIS Verified 06/19/21 10:55 specific AND RASH carbamazepine Allergy Unknown HIVES Verified 06/19/21 10:55 Home Medications Medication Instructions Recorded Confirmed Type aspirin 325 mg tablet (Pietro 325 mg PO Q6H PRN 06/19/21 06/19/21 History Aspirin) Patient History Medical History Atrial flutter No pertinent family history Small bowel obstruction Surgical History History of cardiac radiofrequency ablation (RFA) Hx of knee surgery Social History Smoking Status: Never smoker Hx Alcohol Use: No Hx Substance Use: No Preferred Language: Chinese Communication Ability: Effective Bottle Tester Required: No Beliefs That Will Affect Care: None Current Living Situation: Spouse Other Information That Helps Us Care for You: No Feels Safe at Home: Yes Safety Concerns: Feels Safe At This Time Assistive Devices: None Results & Data ([facility]) Vital Signs (Past 12 Hours) Vital Signs Temp Pulse Pulse Resp BP BP Pulse Ox 06/19/21 20:00 36.7 C 56 L 18 106/65 99 06/19/21 15:13 58 L 06/19/21 13:36 36.4 C L 60 17 110/69 98 06/19/21 13:19 36.8 C 59 L 18 98/61 L 99 06/19/21 12:00 58 L 16 98/58 L 98 06/19/21 10:30 62 14 94/62 L 97
[2021-06-20 05:39] LABS: Basophils # (auto) 0.04 K/uL (0-0.2); Basophils % (auto) 0.7 %; Eosinophils # (auto) 0.13 K/uL (0-0.5); Eosinophils % (auto) 2.2 %; Hematocrit (blood only) 38.6 % (42-52); Hemoglobin 12.7 g/dL (14.0-18.0); Lymphocytes # (auto) 1.18 K/uL (1.2-3.4); Lymphocytes % (auto) 19.6 %; Mean Corpuscular Hemoglobin 29.6 pg (25-34); Mean Corpuscular Hgb Conc 32.9 g/dL (32-36); Mean Platelet Volume 10.6 fL (7.4-10.4); Monocytes # (auto) 0.43 K/uL (0.11-0.59); Monocytes % (auto) 7.1 %; Neutrophils # (auto) 4.25 K/uL (1.4-6.5); Neutrophils % (auto) 70.4 %; Platelet Count 210 K/uL (130-400); RDW Coefficient of Variation 14.4 % (11.5-14.5); RDW Standard Deviation 47.5 fL (36.4-46.3); Red Blood Count 4.29 M/uL (4.7-6.1); White Blood Count 6.03 K/uL (4.8-10.8)
[2021-06-20 06:01] LABS: Albumin Globulin Ratio 0.9 (0.9-2); Albumin Level 2.7 gm/dl (3.4-5.0); BUN Creatinine Ratio 26.9 (10-20); Bilirubin,Total 0.7 mg/dl (0.2-1); Calcium 8.3 mg/dl (8.5-10.1); Creatinine Clr Calc Pharmacy 105.2 ml/min; Est GFR (African American) 113.9 ml/min; Est GFR (Non-African American) 98.2 ml/min; Globulin 3.1 gm/dl (2.5-4.0); Magnesium 2.2 mg/dl (1.8-2.4); Potassium 3.7 mmol/L (3.5-5.1); Total Protein 5.8 gm/dl (6.4-8.2)
--- NOTE | 2021-06-20 09:53 | Electrocardiogram Report ---
Test Reason : Blood Pressure : / mmHG Vent. Rate : 198 BPM Atrial Rate : 202 BPM P-R Int : 000 ms QRS Dur : 162 ms QT Int : 226 ms P-R-T Axes : 000 084 046 degrees QTc Int : 410 ms Supraventricular tachycardia Marked ST abnormality, possible inferolateral subendocardial injury Abnormal ECG When compared with ECG of 30-MAR-2016 19:33, Supraventricular tachycardia has replaced Sinus rhythm Vent. rate has increased BY [address] now depressed in Inferolateral leads Confirmed by Moe Desai ([id number]) on 06/20/2021 9:52:25 AM Referred By: REFERRED SELF Confirmed By:Moe Desai
--- NOTE | 2021-06-20 09:54 | Electrocardiogram Report ---
Test Reason : Blood Pressure : / mmHG Vent. Rate : 059 BPM Atrial Rate : 059 BPM P-R Int : 158 ms QRS Dur : 088 ms QT Int : 418 ms P-R-T Axes : 072 074 077 degrees QTc Int : 413 ms Sinus bradycardia with sinus arrhythmia Marked ST abnormality, possible inferolateral subendocardial injury Abnormal ECG When compared with ECG of 19-JUN-2021 09:24, (unconfirmed) Premature ventricular complexes are no longer Present Confirmed by Moe Desai ([id number]) on 06/20/2021 9:54:12 AM Referred By: REFERRED SELF Confirmed By:Moe Desai
--- NOTE | 2021-06-20 09:54 | Electrocardiogram Report ---
Test Reason : Blood Pressure : / mmHG Vent. Rate : 061 BPM Atrial Rate : 061 BPM P-R Int : 152 ms QRS Dur : 088 ms QT Int : 334 ms P-R-T Axes : 080 074 069 degrees QTc Int : 336 ms Sinus rhythm with sinus arrhythmia with occasional Premature ventricular complexes ST depression, consider subendocardial injury Abnormal ECG When compared with ECG of 19-JUN-2021 09:18, (unconfirmed) Sinus rhythm has replaced Supraventricular tachycardia Vent. rate has decreased BY 137 BPM Confirmed by Moe Desai ([id number]) on 06/20/2021 9:53:22 AM Referred By: REFERRED SELF Confirmed By:Moe Desai
--- NOTE | 2021-06-20 10:14 | Electrocardiogram Report ---
Test Reason : Blood Pressure : / mmHG Vent. Rate : 053 BPM Atrial Rate : 053 BPM P-R Int : 160 ms QRS Dur : 088 ms QT Int : 430 ms P-R-T Axes : 067 051 062 degrees QTc Int : 403 ms Sinus bradycardia Low voltage QRS Borderline ECG When compared with ECG of 19-JUN-2021 09:27, (unconfirmed) ST no longer depressed in Anterolateral leads Confirmed by Moe Desai ([id number]) on 06/20/2021 10:14:38 AM Referred By: REFERRED SELF Confirmed By:Moe Desai
[2021-06-20] MEDS: SODIUM CHLORIDE 0.9% 1000ML 1,000 ML IV SCH (10:29)
--- NOTE | 2021-06-20 12:57 | Cardiology Progress Note ---
Date of Service June 20, 2021 Assessment & Plan (1) SVT (supraventricular tachycardia): Plan: Hx of aflutter, poorly tolerated, s/p ablation noncompliant with cardiac follow up for 18 months now presents with SVT s/p cardioverion in the ER hx of TBS, not tolerant of AV rosio blocking agents in the past significantly symptomatic with lightheadedness and chest pain pt and asking if anemia would be a contributing factor and if we could facilitate transfusion, will defer to primary team given baseline bradycardia, unable to add AV rosio blocking agents at this time no role for anticoagulation with SVT No further episodes of SVT overnight. Patient remains bradycardic and unable to add AV rosio blocking agents. 2D echocardiogram shows no significant structural abnormalities. Valsalva maneuvers reviewed with him Okay to DC to home from a cardiac standpoint. We will need Zio patch placement as an outpatient in our office and electrophysiology evaluation in 1 to 2 weeks for SVT and tachybradycardia syndrome. Admission and Anticipated Discharge Date Admission Date: June 19, 2021 Subjective Patient seen and examined, chart reviewed. States he feels well today and denies any further episodes of palpitations. Received iron transfusion. Denies chest pain, shortness of breath, palpitations, lightheadedness, dizziness or syncope. Telemetry reviewed: Sinus bradycardia in the 40s to 50s. Review of Systems Review of Systems: All systems reviewed & are unremarkable except as noted in HPI & below Physical Exam Physical Exam: Physical Exam: General: Awake, alert and oriented x 3. No acute distress. HEENT: Normocephalic, atraumatic. Pupils equal, round and reactive to light and accommodation. Extraocular muscles are intact. Anicteric sclera. Moist mucous membranes. Neck: No JVD. No bruit. Cardiovascular: Regular. No S-4. Normal S-1 and S-2. No S-3. No murmurs, rubs or gallops. Pulmonary: Clear to auscultation bilaterally. No rales, rhonchi, or wheezing. Abdomen: Bowel sounds x 4, soft. No rebound, guarding or tenderness. No organomegaly. Extremities: No clubbing, cyanosis or edema. +2 pedal pulses bilaterally. Skin: Warm and dry. Results & Data ([facility]) Vital Signs (Past 12 Hours) Vital Signs Temp Pulse Resp BP Pulse Ox 06/20/21 11:15 36.4 C L 48 L 16 105/87 96 06/20/21 04:00 36.4 C L 53 L 12 124/72 95
--- NOTE | 2021-06-20 13:52 | Discharge Summary ---
Date of Service June 20, 2021 Admission HPI Per Admitting Provider 65-year-old male with history of proximal atrial fibrillation, borderline tachybradycardia syndrome, status post ablation 2013, history of iron deficiency anemia, atrophic gastritis, presenting with palpitations this morning at around 6:15 AM. Patient follows with [facility] cardiology service under Dr. Gómez. As per patient, he was doing fine until last March when he started to have intermittent palpitations. He has a heart rate monitor connected to his phone, which reveals heart rate of 190s during these palpitation episodes. Episodes last for about 5 minutes. He would take 2 full dose aspirin when he experiences the symptoms. This morning at around 6:15 AM, the patient was awakened because of palpitations, chest discomfort. No nausea vomiting, sweating, shortness of breath,. He felt dizzy when standing. At the ER, the patient was noted to have heart rate in the 190s, systolic blood pressure in the 70s, EKG showing possible SVT/A. fib in RVR. He was successfully cardioverted. Repeat EKG after procedure showed sinus bradycardia in the 150s. On exam, the patient was seen with his at the bedside. Patient is awake, alert, oriented x3, comfortable, not in distress. He reports relief of symptoms after cardioversion. No active palpitations, chest pain, shortness of breath, nausea vomiting during my exam. He does report feeling little bit dizzy but also received Ativan before the procedure. Patient reports that he has been very careful with his diet to avoid abdominal pain in light of his history of atrophic gastritis. No report of melena or hematochezia. No other symptoms. Admission Exam Per Admitting Provider General- oriented x 3, not in distress, speaks in sentences with no effort or accessory muscle use Head- atraumatic Eyes- PERRL, EOMI, anicteric ENT- oropharynx clear Neck- supple, no JVD, no adenopathy, no thyromegaly; carotids +2/2, no bruits appreciated Lungs- clear to auscultation bilaterally, no rales/wheezes Heart- normal rate, regular rhythm; no murmur, no gallop, no rub appreciated Abdomen- normal bowel sounds, nondistended, soft, nontender, no masses or hepatosplenomegaly Extremities- no pretibial edema, no calf tenderness; peripheral pulses intact Neuro- alert, oriented x 3; CN 2-12 grossly intact; motor 5/5 bilaterally;sensation 100% on all extremities; no other gross focal neurologic deficits Skin- warm & dry Principal Diagnosis SVT (supraventricular tachycardia): Discharge Exam General- No acute distress Head- atraumatic Eyes- PERRL, EOMI, ENT- oropharynx clear Neck- supple, no JVD Lungs- clear to auscultation Heart- regular rhythm; no murmur Abdomen- normal bowel sounds, soft, nontender Extremities- no calf tenderness Neuro- alert, oriented x 3; PERRL, EOMI; no facial palsy; no dysarthria Skin- warm & dry Discharge Data Allergies Allergy/AdvReac Type Severity Reaction Status Date / Time monosodium glutamate Allergy Severe NERVOUS Verified 06/19/21 10:55 morphine Allergy Severe COULD NOT Verified 06/19/21 10:55 URINATE influenza virus vaccine, Allergy Intermediate PURITIS Verified 06/19/21 10:55 specific AND RASH carbamazepine Allergy Unknown HIVES Verified 06/19/21 10:55 Consultations 06/19/21 12:22 ED Decision to Admit Stat 06/19/21 13:48 Consult Cardiology Routine Ordered Studies 06/19/21 09:26 CT angio chest PE protocol Stat CT angio chest PE protocol CLINICAL HISTORY: Chest pain, tachycardia TECHNIQUE: Multidetector row helical CT of the chest was performed. Coronal and sagittal reformations were obtained. Automated dose lowering techniques and/or adjustment according to patient size were utilized for this exam. Comparison: None available at the time of this dictation. FINDINGS: Lungs and pleura: A few scattered blebs are seen, most prominent at the apices. Heart and pericardium: Heart size is normal. No pericardial effusion. Vessels: No evidence of pulmonary embolism. Mediastinum and linnea: Unremarkable. Chest wall and lower neck: Unremarkable. Abdomen: Unremarkable. Bones: Unremarkable. IMPRESSION: No acute abnormalities and in particular no evidence of pulmonary embolism. ACT 112: Negative or not required by law. Electronically signed by: Mariano Gusman M.D. 06/19/2021 9:58 AM Dictated:06/19/21954 Transcribed: 06/19/21954 XR chest 1V portable CLINICAL HISTORY: Atypical chest pain TECHNIQUE: Single frontal radiograph of the chest was obtained. Comparison: Comparison is made to chest and abdomen radiographs 03/30/2016 FINDINGS: No lines and tubes are seen. The cardiomediastinal silhouette is normal. The lungs are clear. No evidence of pleural effusion or pneumothorax. IMPRESSION: No acute chest disease. ACT 112: Negative or not required by law. Electronically signed by: Mariano Gusman M.D. 06/19/2021 9:42 AM Dictated:06/19/21940 Transcribed: 06/19/21940 Hospital Course (1) SVT (supraventricular tachycardia): (2) Hypotension: 65-year-old male with history of proximal atrial fibrillation, borderline tachybradycardia syndrome, status post ablation 2013, history of iron deficiency anemia, atrophic gastritis, presenting with palpitations this morning at around 6:15 AM. POSSIBLE SVT, STATUS POST ELECTROCARDIOVERSION HISTORY OF PAROXYSMAL A. FIB, BORDERLINE TACHYBRADYCARDIA SYNDROME, STATUS POST ABLATION 2013 Cardioversion, patient remains in sinus rhythm heart rate low 60s Blood pressure 98/68, asymptomatic Initial troponin negative, troponin x2 pending Echocardiogram [id number] score 1, no need for anticoagulation Hold off on any beta-blockers at this point due to borderline heart rate Cardiology service consulted, discussed with Dr. Gallardo- No beta tobin for now Follow up with cardiology in 1 to 2 weeks will need to arrange for a Zio Patch as an outpatient ( your cardiology or your provider will arrange it for you ) Seek medical attention if your symptoms reoccur HISTORY OF IRON DEFICIENCY ANEMIA ATROPHIC GASTRITIS Patient follows with [facility] vitamin manager Dr. Wong, has received IV iron in the past, last IV iron transfusion was a year ago as per patient Patient reports feeling fatigued lately despite hemoglobin and iron level being in the low normal range Hemoglobin 15 We'll May need IV iron transfusion during this admission CODE STATUS Full code as per patient DVT prophylaxis SCDs for now Disposition Discharge home Follow up with cardio in 2 weeks Total Time Total Time Spent Total Time Spent (In Minutes): 35 minutes Discharge Plan Discharge Items Patient Disposition: Home - Self-Care Reason For Visit: A FIB IN RVR Discharge Diagnosis: SVT (supraventricular tachycardia): Activity: Resume your previous activity Non-emergency contact: Primary Care Provider and Mid Wife Call non-emergency contact if: you have any medication questions Follow-up/Referrals: Abelardo Parker, [Primary Care Provider] - Diet: Heart Healthy Addtl Attending Provider Instructions: Follow up with your primary care provider within 1 week (Please call to schedule for the appointment) Follow up with cardiology in 1 to 2 weeks You will need to arrange for a Zio Patch as an outpatient ( your cardiology or your provider will arrange it for you ) Seek medical attention if your symptoms reoccur Pending Studies at Discharge: No Stand-Alone Forms: My [facility] [employer], Smoking Cessation Medications and DC Order Prescriptions: Continued aspirin [Ipetro Aspirin] 325 mg Tablet 325 mg PO Q6H PRN (Reason: Pain) RF: 0 Discharge Orders: Discharge Order (Routine); Ordered 06/20/21 Ordered By: Rosy Mckeon Admission Data Admit Date/Time: 06/19/21 11:51 Attending Provider: Rosy Mckeon Admit Provider: Nacho Farrar Primary Care Provider: Abelardo Parker Other Providers: Cole Gallardo Other Interventions: Discharge Summary Assessment (RN) Last Done: 06/20/21 14:23
--- NOTE | 2021-06-22 05:32 | Electrocardiogram Report ---
Test Reason : Blood Pressure : / mmHG Vent. Rate : 048 BPM Atrial Rate : 048 BPM P-R Int : 160 ms QRS Dur : 092 ms QT Int : 466 ms P-R-T Axes : 056 048 056 degrees QTc Int : 416 ms Sinus bradycardia Otherwise normal ECG When compared with ECG of 19-JUN-2021 16:01, No significant change was found Confirmed by Ruddy Chamorro ([id number]) on 06/22/2021 5:32:33 AM Referred By: REFERRED SELF Confirmed By:Ruddy Chamorro
== END 2021-06-20 15:05 | disposition home or self-care (01) | DRG 310 ==
LOC: ED 09:06 → SUATTDRO 11:51 → 2S 11:51 → 1E 16:35

== ENCOUNTER 2024-06-25 12:27 | Inpatient (IN) ==
[2024-06-25] MEDS: MAGNESIUM SULFATE / D5W 1 GM/100 ML BAG IV SCH (13:05)
[2024-06-25] MEDS: MAGNESIUM SULFATE 1GM / D5W BAG IV ONE (13:07)
[2024-06-25] MEDS: ETOMIDATE 2 MG/ML 20 ML VIAL IV ONE ×2 (13:56→13:57)
--- NOTE | 2024-06-25 13:56 | XRay Report ---
EXAM: Radiograph of the Chest 1 View INDICATION: SVT TECHNIQUE: Frontal view of the chest. COMPARISON: No relevant prior studies available. FINDINGS: Lungs and pleural spaces: No consolidation or pulmonary edema. No pleural effusion or pneumothorax. Heart: Prominent cardiac shadow accentuated by technique. Normal shape and configuration. Mediastinum: Normal contour. Bones/joints: Degenerative changes noted throughout the spine. No acute osseous abnormality seen. Postoperative deformity right distal clavicle. Soft tissues: No abnormality noted. No radiopaque foreign body noted. Upper abdomen: No abnormality noted. IMPRESSION: No acute cardiopulmonary disease. ACT 112: Negative or not required by law. Electronically signed by Malou Deleon 06-25-2024 13:54 PM
[2024-06-25 13:57] LABS: Basophils # (auto) 0.08 K/uL (0.00-0.20); Basophils % (auto) 0.7 %; Eosinophils # (auto) 0.11 K/uL (0.00-0.50); Hematocrit (blood only) 46.6 % (42.0-52.0); Hemoglobin 15.5 g/dl (14.0-18.0); Immature Granulocytes # (auto) 0.06 K/uL (0.01-0.20); Immature Granulocytes % (auto) 0.6 %; Lymphocytes # (auto) 1.91 K/uL (1.20-3.40); Lymphocytes % (auto) 17.7 %; Mean Corpuscular Hgb Conc 33.3 g/dL (32.0-36.0); Mean Corpuscular Volume 90.3 fL (80.0-100.0); Mean Platelet Volume 11.6 fL (9.4-12.4); Monocytes # (auto) 0.73 K/uL (0.11-0.59); Monocytes % (auto) 6.8 %; Neutrophils # (auto) 7.89 K/uL (1.40-6.50); Neutrophils % (auto) 73.2 %; Platelet Count 302 K/uL (130-400); RDW Coefficient of Variation 13.7 % (11.5-14.5); RDW Standard Deviation 45.6 fL (36.4-46.3); Red Blood Count 5.16 M/uL (4.70-6.10); White Blood Count 10.78 K/ul (4.8-10.8)
[2024-06-25 14:01] LABS: Anion Gap 9 (3-11); BUN Creatinine Ratio 16.5 (10-20); Blood Urea Nitrogen 21 mg/dl (6-23); Calcium 9.4 mg/dl (8.6-10.3); Carbon Dioxide 22 mmol/L (21-32); Chloride 107 mmol/L (98-107); Glucose 119 mg/dl (70-99(Fasting)); Magnesium 2.1 mg/dl (1.7-2.4); Potassium 4.9 mmol/L (3.5-5.1); Sodium 138 mmol/L (136-145)
[2024-06-25 14:11] LABS: Troponin I High Sensitivity 76.9 pg/ml (0-20)
--- NOTE | 2024-06-25 14:24 | Emergency Department Note ---
Impression & Plan Unstable arrhythmia, SVT (supraventricular tachycardia), Elevated troponin ED Provider Note NAME: BECCA VIZCAINO AGE: 68 SEX: M : 1955 ARRIVES VIA: Walk-In INFORMANT: Patient, ED PROVIDER(S): Parag Wong MD CHIEF COMPLAINT: Tachycardia HPI: This is a 68-year-old male present for tachycardia. Patient notes a history of atrial fibrillation previously on Eliquis for paroxysmal atrial fibrillation. He has had 1 previous episode of something similar today. He notes that about 4 hours ago began feeling lightheaded with heart racing sensation. He notes that last night he felt something similar which did not improved. He notes he had surgery for his shoulder on Monday with normal recovery since then. He has not missed any doses of Eliquis since finishing the surgery. ROS: See above HPI for pertinent positives & negatives. A total of 10 systems reviewed and were otherwise negative. PAST MEDICAL HISTORY: See Below PAST SURGICAL HISTORY: See Below FAMILY HISTORY: See Below SOCIAL HISTORY: See Below HOME MEDICATIONS: See Below ALLERGIES: See Below VITALS: See Below PHYSICAL EXAMINATION: [General: Pale, diaphoretic, in extremis Head: Normocephalic and atraumatic Eyes: Normal inspection, extraocular muscles intact Ear, nose, throat: Normal external exam Neck: Normal range of motion Respiratory: lungs clear to auscultation bilaterally Cardiovascular: Tachycardic this is a regular rate/rhythm, no murmur GI: soft, nontender, no guarding or rebound Extremities: nontender, moves all extremities Neuro: The patient awake and alert, appropriately conversive, no focal deficits, symmetric faces Skin: Warm, dry, and intact MEDICAL DECISION MAKING: This is 68-year-old male presenting for tachycardia. Patient is currently pale, diaphoretic, does appear to be an extremis. Heart rate is 192 sustained with his blood pressure 60/40. At this time it appears to be a SVT versus atrial flutter. Due to the unstable narrow complex tachycardia, likely SVT, will require electrical cardioversion at this time. Patient opted taking Eliquis. I did discuss the risk of this but this is an emergent procedure and patient does not appear stable to do IV medications. He is pale, diaphoretic, and significantly lightheaded. -ECG independently interpreted by me with likely supraventricular tachycardia at a rate of 194 normal QRS, normal QTc, no ST segment elevations consistent with STEMI criteria, inferior ST depressions -Patient given 5 mg of IV etomidate for sedation. Patient successfully cardioverted with 200 J of electricity. -Second ECG independently interpreted by me with sinus bradycardia rate of 50, rate of 52, normal axis, normal KS, normal QRS, normal QTc, no ST segment elevations consistent with STEMI criteria -Patient with 2 g of magnesium IV -Chest Xray independently interpreted by me showing no pneumothorax, focal opacity, or pleural effusions. -Bloodwork is reviewed showing no significant leukocytosis, anemia, electrolyte or creatinine abnormality. Patient troponin is elevated 76.9, likely from patient's previous SVT PROCEDURE: Cardioversion w/ sedation Indication: Unstable SVT Verbal consent was obtained after the risks and benefits were explained. At this time, the risks of the procedure are less than the risks of NOT performing the procedure. A time out was taken and the correct patient and procedure identified. The patient was on 100% via NRB and end tidal CO2 monitoring prior to the procedure. Suction, airway equipment, medications, respiratory equipment, ACLS cart, and appropriate personnel were prepared prior to the initiation of the procedure. Sedation was achieved utilizing etomidate. The biphasic defibrillator was set to 200 joules of energy and synched. After confirmation of sedation and "all clear" safety check the synchronized shock was delivered. This resulted in successful conversion of the dysrhythmia back into sinus rhythm. See nursing notes for dosages and times. There were no complications and the patient recovered uneventfully from the procedure. Differential diagnosis: SVT, atrial flutter, PE, ACS Independent History obtained from: Diagnostics interpreted by me: ECG: See above Cardiac Monitoring: An order was placed for continuous cardiac monitoring. The monitor shows a rate of 192 with SVT rhythm. Critical Care Note: I have personally spent 45 minutes of critical care time in the direct management of this patient. This includes bedside care, interpretation of diagnostic studies, and testing, discussion with consultants, patient, and family members, and other required patient management activities. This 45 minutes is in excess of all separately billable procedures. Past Med/Surg History Problem List (Updated 06/25/24 @ 15:26 by Parag Wong MD) Elevated troponin (Acute) SVT (supraventricular tachycardia) (Acute) Unstable arrhythmia (Acute) Encounter for pre-operative examination Small bowel obstruction (Acute) Bowel obstruction (Acute) Abdominal pain (Acute) Abdominal pain (Acute) Bowel obstruction (Chronic) Stomach problems (Chronic) Medical History Spinal stenosis epidural steroid injection "really helped" History of colitis Gastritis AUTO IMMUNE GASTRITIS Low iron receives iron infusions the 14th of every month Hx SBO last episode 2015 History of cardioversion 2020, [facility] History of atrial fibrillation currently on eliquis; f/u shiva forte Tachycardia IRREGULAR TACHYCARDIA>HAS PRN MEDICATION TO TX (FOLLOWED BY [facility]) Hypotension SVT (supraventricular tachycardia) hx, no current issues per pt. Surgical History S/P hardware removal right wrist History of open reduction and internal fixation (ORIF) procedure 40 years ago, right wrist>hardware removed S/P epidural steroid injection lumbar H/O shoulder surgery right History of colonoscopy History of esophagogastroduodenoscopy (EGD) History of tooth extraction History of tonsillectomy and adenoidectomy [place] cardiac [place] [facility] [place] [facility]; f/u shiva forte Hx of knee surgery right Family History Other No family history of adverse response to anesthesia Social History Smoking Status: Former smoker Second Hand Exposure: Yes (hx growing up); Do You Dip or Chew Tobacco: No; Hx Alcohol Use: Yes Alcohol type: hard liquor Hx Substance Use: No Preferred Language: Romanian Communication Ability: Effective Cook Relief Required: No Beliefs That Will Affect Care: None Current Living Situation: Spouse Feels Safe at Home: Yes Assistive Devices: None Allergies Allergies Allergy/AdvReac Type Severity Reaction Status Date / Time carbamazepine Allergy Intermediate HIVES Verified 06/21/24 07:13 influenza virus vaccine, Allergy Intermediate PURITIS Verified 06/21/24 07:13 specific AND RASH monosodium glutamate AdvReac Severe NERVOUS Verified 06/21/24 07:13 morphine AdvReac Severe COULD NOT Verified 06/21/24 07:13 URINATE Home Meds Home Medications Medication Instructions Recorded Confirmed metoprolol tartrate 25 mg tablet 25 - 50 mg PO UD PRN TACHYCARDIA 04/05/22 06/21/24 EPISODE multivitamin 1 tab PO BID 04/05/22 06/21/24 omega-3 fatty acids 1,000 mg PO BID 04/05/22 06/21/24 Iron Infusion 1 dose IV Q30D 06/17/24 06/21/24 apixaban 5 mg tablet (Eliquis) 5 mg PO BID 06/17/24 06/21/24 vitamin A-vitamin C-vit E-min 1 tab PO QAM 06/17/24 06/21/24 tablet Results & Data (ED) Vital Signs Vital Signs - 24 hr 06/25/24 12:30 06/25/24 12:41 06/25/24 12:46 Temperature 36.8 C Temperature Source Temporal Artery Scan Pulse Rate 111 H 189 H Pulse Rate [Apical] 194 H Respiratory Rate 20 18 Respiratory Effort / Characteristics Non-Labored Non-Labored Spontaneous Respiratory Depth Normal Normal Respiratory Pattern Regular Blood Pressure [Right Arm] 64/38 L Blood Pressure Mean [Right Arm] 46 Blood Pressure Position [Right Arm] Pulse Oximetry 98 99 Oxygen Delivery Method Room Air Room Air Oxygen Flow Rate Sepsis Recent Fever Within 48 Hours No Sepsis New/Unexplained Change in Mental Status N/A Sepsis Action Taken by Nursing No Action Required 06/25/24 12:47 06/25/24 12:54 06/25/24 12:57 Temperature Temperature Source Pulse Rate Pulse Rate [Apical] 189 H 54 L 60 Respiratory Rate 18 18 18 Respiratory Effort / Characteristics Non-Labored Spontaneous Non-Labored Spontaneous Respiratory Depth Normal Normal Normal Respiratory Pattern Regular Regular Blood Pressure [Right Arm] 64/32 L 92/66 L 99/69 L Blood Pressure Mean [Right Arm] 42 74 79 Blood Pressure Position [Right Arm] Pulse Oximetry 99 99 98 Oxygen Delivery Method Room Air Non-rebreather Room Air Oxygen Flow Rate 15 Sepsis Recent Fever Within 48 Hours Sepsis New/Unexplained Change in Mental Status Sepsis Action Taken by Nursing 06/25/24 12:57 06/25/24 13:03 06/25/24 14:29 Temperature Temperature Source Pulse Rate 54 L Pulse Rate [Apical] 63 56 L Respiratory Rate 18 16 Respiratory Effort / Characteristics Non-Labored Spontaneous Respiratory Depth Normal Respiratory Pattern Regular Blood Pressure [Right Arm] 95/60 L 90/50 L Blood Pressure Mean [Right Arm] 71 63 Blood Pressure Position [Right Arm] Pulse Oximetry 99 100 Oxygen Delivery Method Room Air Room Air Oxygen Flow Rate Sepsis Recent Fever Within 48 Hours Sepsis New/Unexplained Change in Mental Status Sepsis Action Taken by Nursing 06/25/24 15:00 06/25/24 15:00 Temperature Temperature Source Pulse Rate Pulse Rate [Apical] 52 L Respiratory Rate 16 Respiratory Effort / Characteristics Respiratory Depth Respiratory Pattern Blood Pressure [Right Arm] 85/55 L Blood Pressure Mean [Right Arm] 65 Blood Pressure Position [Right Arm] Semi-fowlers Pulse Oximetry 99 Oxygen Delivery Method Room Air Room Air Oxygen Flow Rate Sepsis Recent Fever Within 48 Hours Sepsis New/Unexplained Change in Mental Status Sepsis Action Taken by Nursing Laboratory Data 06/25/24 12:40 06/25/24 12:40 Lab Results 06/25/24 Range/Units 12:40 WBC 10.78 (4.8-10.8) K/ul RBC 5.16 (4.70-6.10) M/uL Hgb 15.5 (14.0-18.0) g/dl Hct 46.6 (42.0-52.0) % MCV 90.3 (80.0-100.0) fL MCH 30.0 (25.0-34.0) pg MCHC 33.3 (32.0-36.0) g/dL RDW Std Deviation 45.6 (36.4-46.3) fL RDW Coeff of Yoni 13.7 (11.5-14.5) % Plt Count 302 (130-400) K/uL MPV 11.6 (9.4-12.4) fL Immature Gran % (Auto) 0.6 % Neut % (Auto) 73.2 % Lymph % (Auto) 17.7 % [place] % (Auto) 6.8 % Eos % (Auto) 1.0 % Baso % (Auto) 0.7 % Neut # (Auto) 7.89 H (1.40-6.50) K/uL Lymph # (Auto) 1.91 (1.20-3.40) K/uL [place] # (Auto) 0.73 H (0.11-0.59) K/uL Eos # (Auto) 0.11 (0.00-0.50) K/uL Baso # (Auto) 0.08 (0.00-0.20) K/uL Immature Gran # (Auto) 0.06 (0.01-0.20) K/uL Sodium 138 (136-145) mmol/L Potassium 4.9 (3.5-5.1) mmol/L Chloride 107 (98-107) mmol/L Carbon Dioxide 22 (21-32) mmol/L Anion Gap 9 (3-11) BUN 21 (6-23) mg/dl Creatinine 1.27 (0.6-1.4) mg/dl Est Cr Clr Drug Dosing Not Reportable eGFR 60.78 BUN/Creatinine Ratio 16.5 (10-20) Glucose 119 H (70-99(Fasting)) mg/dl Calcium 9.4 (8.6-10.3) mg/dl Magnesium 2.1 (1.7-2.4) mg/dl Troponin I High Sens 76.9 H* (0-20) pg/ml Administered Medications Discontinued Medications Etomidate (Etomidate 2 Mg/Ml 20 Ml Vial) Confirm Administered Dose 40 mg IV .STK-MED ONE Stop: 06/25/24 12:45 Last Admin: 06/25/24 13:57 Dose: Not Given Documented By: TROY Etomidate (Etomidate 2 Mg/Ml 20 Ml Vial) 5 mg IV NOW ONE Stop: 06/25/24 13:38 Last Admin: 06/25/24 13:56 Dose: 5 mg Documented By: TROY Magnesium Sulfate/Dextrose (Magnesium Sulfate / D5w) 1 gm in 100 mls @ 50 mls/hr IV Q30M LIBBY Stop: 06/25/24 13:59 Last Admin: 06/25/24 14:00 Dose: 50 mls/hr Documented By: Infusion: 06/25/24 14:00 Dose: Infused Documented By: Admin: 06/25/24 13:05 Dose: 50 mls/hr Documented By: TROY Magnesium Sulfate/Dextrose (Magnesium Sulfate 1gm / D5w Bag) Confirm Administered Dose 2 gm IV .STK-MED ONE Stop: 06/25/24 12:55 Last Admin: 06/25/24 13:07 Dose: Not Given Documented By: TROY Imaging Data Radiologist's Impression: Chest X-Ray 06/25/24 13:32 EXAM: Radiograph of the Chest 1 View INDICATION: SVT TECHNIQUE: Frontal view of the chest. COMPARISON: No relevant prior studies available. FINDINGS: Lungs and pleural spaces: No consolidation or pulmonary edema. No pleural effusion or pneumothorax. Heart: Prominent cardiac shadow accentuated by technique. Normal shape and configuration. Mediastinum: Normal contour. Bones/joints: Degenerative changes noted throughout the spine. No acute osseous abnormality seen. Postoperative deformity right distal clavicle. Soft tissues: No abnormality noted. No radiopaque foreign body noted. Upper abdomen: No abnormality noted. IMPRESSION: No acute cardiopulmonary disease. ACT 112: Negative or not required by law. Electronically signed by Malou Deleon 06-25-2024 13:54 PM Discharge Plan Visit Data Chief Complaint: Tachycardia Stated Complaint: HEART IS RACING, DIZZY, LIGHTHEADED ED Provider: Parag Wong ED Midlevel Provider: Etta Begum Discharge Problem: Unstable arrhythmia, SVT (supraventricular tachycardia), Elevated troponin Forms Stand Alone Forms: [facility] [employer] Prescriptions Prescriptions: No Action multivitamin Tablet 1 tab PO BID omega-3 fatty acids Capsule 1,000 mg PO BID Patient Comments: INSTRUCTED ON BOTTLE metoprolol tartrate 25 mg Tablet 25 - 50 mg PO UD PRN (Reason: TACHYCARDIA EPISODE) Patient Comments: very rare use vitamin A-vitamin C-vit E-min Tablet 1 tab PO QAM Eliquis 5 mg Tablet 5 mg PO BID Iron Infusion 1 dose IV Q30D Patient Comments: always 14th of every month Referrals Referrals: Jacob Diaz MD [Primary Care Provider] -
[2024-06-25] MEDS: SODIUM CHLORIDE 0.9% 500 ML IV ONE (15:32)
--- NOTE | 2024-06-25 16:06 | History & Physical Report ---
Date of Service June 25, 2024 Assessment & Plan (1) SVT (supraventricular tachycardia): (2) Elevated troponin: (3) PAF (paroxysmal atrial fibrillation): Plan: Admit to telemetry Patient presenting from home for evaluation of palpitations. Patient with a l ongstanding history of paroxysmal atrial fibrillation/ flutter s/p ablation in 2013 and history of SVT vs. atrial flutter requiring cardioversion in 2020, early signs of TBS In the ED, patient found to be in SVT vs. rapid atrial flutter with associated hypotension requiring urgent cardioversion. Patient converted to sinus bradycardia with occasional PACs and PVCs. HS trop 79, likely demand ischemia in the setting of SVT/rapid atrial flutter. Will continue to trend. Resting echo Continue [employer] Eliquis Cardio consult (4) H/O shoulder surgery: Plan: S/p left shoulder surgery on 06/21/24 No acute issue Follow up with ortho as scheduled (5) Atrophic gastritis: (6) SARAY (iron deficiency anemia): Plan: Receives monthly iron infusions Hgb 15.5 DVT PROPHYLAXIS On Eliquis Patient seen in collaboration with Dr. Gonzalez. I spent a total of 75 minutes coordinating, documenting, and providing care for this patient excluding time spent in the performance of separately billed services. This included personally reviewing all current laboratories and imaging studies, medication reconciliation, outpatient chart review, and discussion with specialists. History of Present Illness Chief Complaint: palpitations Primary Care Provider: Jacob Diaz MD 68-year-old male with PMH paroxysmal atrial fibrillation and atrial flutter anticoagulated on Eliquis, History of ablation in 2013, SVT requiring cardioversion in 2020, early signs of tachybrady syndrome, atropic gastritis, SARAY on iron infusion, and other problems listed below who presents to the ED for evaluation of palpitations. Patient with a longstanding history of paroxysmal atrial fibrillation and atrial flutter. Currently using metoprolol on a as needed basis for palpitations. Patient states he typically requires a dose every 2 months or so. Patient underwent shoulder surgery on 06/21. Overnight on 06/23, patient had episode of palpitations that woke him from sleep. He took a dose of metoprolol and reports his symptoms resolved in about 4 hours. States heart rate typically is in the 50s and when he has an episode of palpitations, heart rate is usually in the 90s. Patient had another episode of palpitations last night, he took a dose of metoprolol again with improvement. However palpitations returned and heart rate was much higher (in the 180s per [employer]). patient took another dose of metoprolol however did not have any improvement. He reports associated lightheadedness. No chest pain or shortness of breath. Denies any other recent illnesses, fevers, chills. No abdominal pain, nausea, vomiting, diarrhea. Denies urinary symptoms. In the ED, patient was found to be in SVT with rate in the 180s. He underwent successful cardioversion. Patient is currently in sinus [place] with occasional PVC and PAC. Initial HS troponin 79. Allergies Allergy/AdvReac Type Severity Reaction Status Date / Time carbamazepine Allergy Intermediate HIVES Verified 06/21/24 07:13 influenza virus vaccine, Allergy Intermediate PURITIS Verified 06/21/24 07:13 specific AND RASH monosodium glutamate AdvReac Severe NERVOUS Verified 06/21/24 07:13 morphine AdvReac Severe COULD NOT Verified 06/21/24 07:13 URINATE Home Medications Medication Instructions Recorded Confirmed Type multivitamin 1 tab PO DAILY 04/05/22 06/25/24 History Iron Infusion 1 dose IV Q30D 06/17/24 06/25/24 History apixaban 5 mg tablet (Eliquis) 5 mg PO BID 06/17/24 06/25/24 History vitamin A-vitamin C-vit E-min 1 tab PO QAM 06/17/24 06/25/24 History tablet metoprolol tartrate 25 mg tablet 50 mg PO DAILY PRN Palpitations 06/25/24 06/25/24 History omega-3 fatty acids 1,000 mg 1,000 mg PO BID 06/25/24 06/25/24 History capsule Past Med/Surg History Problem List (Updated 06/25/24 @ 16:11 by ALTHEA Atkinson) Elevated troponin (Acute) SVT (supraventricular tachycardia) (Acute) Medical History (Updated 06/25/24 @ 16:11 by ALTHEA Atkinson) SARAY (iron deficiency anemia) Atrophic gastritis PAF (paroxysmal atrial fibrillation) Spinal stenosis epidural steroid injection "really helped" History of colitis Gastritis AUTO IMMUNE GASTRITIS Low iron receives iron infusions the of every month Hx SBO last episode 2015 History of cardioversion 2020, [facility] History of atrial fibrillation currently on eliquis; f/u shiva forte Tachycardia IRREGULAR TACHYCARDIA>HAS PRN MEDICATION TO [place] (FOLLOWED BY [facility]) Hypotension SVT (supraventricular tachycardia) hx, no current issues per pt. Surgical History S/P hardware removal right wrist History of open reduction and internal fixation (ORIF) procedure 40 years ago, right wrist>hardware removed S/P epidural steroid injection lumbar H/O shoulder surgery right History of colonoscopy History of esophagogastroduodenoscopy (EGD) History of tooth extraction History of tonsillectomy and adenoidectomy History of cardiac radiofrequency ablation (RFA) ~2013, [facility] [place] [facility]; f/u shiva forte Hx of knee surgery right Family History Other No family history of adverse response to anesthesia Social History Smoking Status: Former smoker Second Hand Exposure: Yes (hx growing up); Do You Dip or Chew Tobacco: No; Hx Alcohol Use: Yes Alcohol type: hard liquor Hx Substance Use: No Preferred Language: Greenlandic Communication Ability: Effective 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 Beliefs That Will Affect Care: None Current Living Situation: Spouse Feels Safe at Home: Yes Assistive Devices: None Review of Systems Review of Systems: ROS per HPI, all other systems reviewed and negative Physical Exam Constitutional: WD/WN, vitals as above no acute distress Eyes: PERRL, conjunctivae normal, anicteric sclerae ENMT: external ear and nose normal, oropharynx normal Respiratory: normal respiratory effort, lungs clear to auscultation Cardiovascular: Rate/Rhythm: regular rhythm and + bradycardic Vessels: normal peripheral pulses Extremities: no edema Gastrointestinal (Abdomen): normal bowel sounds, soft, nontender, no hepatosplenomegaly Musculoskeletal: s/p right shoulder surgery, dressing CDI, no surrounding erythema or drainage Skin: no rashes, warm and dry Neurologic: PERRL, EOMI, accommodation nl, no face palsy, no dysarthria Psychiatric: A+Ox3, euthymic affect Results & Data Results & Data Vital Signs (Past 12 Hours) Vital Signs Temp Pulse Pulse Resp BP Pulse Ox O2 Del Method 06/25/24 15:00 52 L 16 85/55 L 99 Room Air 06/25/24 15:00 Room Air 06/25/24 14:29 56 L 16 90/50 L 100 Room Air 06/25/24 13:03 63 18 95/60 L 99 Room Air 06/25/24 12:57 54 L 06/25/24 12:57 60 18 99/69 L 98 Room Air 06/25/24 12:54 54 L 18 92/66 L 99 Non-rebreather 06/25/24 12:47 189 H 18 64/32 L 99 Room Air 06/25/24 12:46 189 H 06/25/24 12:41 194 H 18 64/38 L 99 Room Air 06/25/24 12:30 36.8 C 111 H 20 98 Room Air O2 Flow Rate 06/25/24 15:00 06/25/24 15:00 06/25/24 14:29 06/25/24 13:03 06/25/24 12:57 06/25/24 12:57 06/25/24 12:54 15 06/25/24 12:47 06/25/24 12:46 06/25/24 12:41 06/25/24 12:30 Laboratory Results Short CBC 06/25/24 Range/Units 12:40 WBC 10.78 (4.8-10.8) K/ul Hgb 15.5 (14.0-18.0) g/dl Hct 46.6 (42.0-52.0) % Plt Count 302 (130-400) K/uL BMP 06/25/24 12:40 Sodium 138 Potassium 4.9 Chloride 107 Carbon Dioxide 22 BUN 21 Creatinine 1.27 Glucose 119 H Calcium 9.4 Diagnostic Findings Chest X-Ray 06/25/24 13:32 EXAM: Radiograph of the Chest 1 View INDICATION: SVT TECHNIQUE: Frontal view of the chest. COMPARISON: No relevant prior studies available. FINDINGS: Lungs and pleural spaces: No consolidation or pulmonary edema. No pleural effusion or pneumothorax. Heart: Prominent cardiac shadow accentuated by technique. Normal shape and configuration. Mediastinum: Normal contour. Bones/joints: Degenerative changes noted throughout the spine. No acute osseous abnormality seen. Postoperative deformity right distal clavicle. Soft tissues: No abnormality noted. No radiopaque foreign body noted. Upper abdomen: No abnormality noted. IMPRESSION: No acute cardiopulmonary disease. ACT 112: Negative or not required by law. Electronically signed by Malou Deleon 06-25-2024 13:54 PM Supervising Physician Co-Signing Physician Notes Attending addendum: The patient was seen and examined in emergency room He has been complaining of palpitation noted to have high heart rate for the last day or 2 at home and to his extra dose of medication to help with Has been having dizziness with ambulation and heart rate did not go down he decided to come to the emergency room Denies any chest pain and/or shortness of breath, no nausea no vomiting On examination He is a status post cardioversion and having sinus rhythm at 52/min Denies any palpitations or shortness of breath at rest Chestclear to auscultate bilaterally HeartS1-S2, regular Abdomenbenign, no tenderness dorsally present Extremitiesno edema CNSalert, awake and oriented x 3. No focal sensory or motor deficit His admission labs, EKG and imaging studies reviewed Noted to have atrial fibrillation with RVR with history of paroxysmal atrial fibrillation status post ablation in 2013 and also SVT versus atrial flutter requiring cardioversion 2020 Status post cardioversion and now remains in sinus rhythm Will continue current medications and cardiology evaluation for adjustment of medication Agree with assessment plan as documented by Mayte OH and take the full responsibility of care in the hospital Dr Piter Gonzalez
[2024-06-25] MEDS ORDERED: ACETAMINOPHEN 325 MG TAB PO PRN (17:18)
--- NOTE | 2024-06-25 18:32 | Electrocardiogram Report ---
Test Reason : Blood Pressure : */* mmHG Vent. Rate : 52 BPM Atrial Rate : 52 BPM P-R Int : 156 ms QRS Dur : 80 ms QT Int : 398 ms P-R-T Axes : 69 56 54 degrees QTcB Int : 370 ms Sinus bradycardia Nonspecific ST abnormality Abnormal ECG When compared with ECG of 25-Jun-2024 12:40, (unconfirmed) Vent. rate has decreased by [address] less depressed in Lateral leads Confirmed by Simeon Medel ([id number]) on 06/25/2024 6:31:51 PM Referred By: REFERRED SELF Confirmed By: Simeon Medel
--- NOTE | 2024-06-25 18:39 | Electrocardiogram Report ---
Test Reason : Blood Pressure : */* mmHG Vent. Rate : 194 BPM Atrial Rate : * BPM P-R Int : * ms QRS Dur : 82 ms QT Int : 238 ms P-R-T Axes : * 62 55 degrees QTcB Int : 427 ms Supraventricular tachycardia Marked ST abnormality, possible inferior subendocardial injury Abnormal ECG When compared with ECG of 20-Jun-2021 11:01, Vent. rate has increased by [address] now depressed in Inferior leads ST now depressed in Anterolateral leads Confirmed by Simeon Medel ([id number]) on 06/25/2024 6:39:23 PM Referred By: REFERRED SELF Confirmed By: Simeon Medel
[2024-06-25] MEDS: APIXABAN 5 MG TABLET PO SCH (20:36)
[2024-06-25] MEDS ORDERED: MELATONIN 3 MG TAB PO PRN (23:22)
[2024-06-25] MEDS: MELATONIN 3 MG TAB PO ONE (23:39)
[2024-06-26 07:00] LABS: Hematocrit (blood only) 38.8 % (42.0-52.0); Hemoglobin 12.9 g/dl (14.0-18.0); Mean Corpuscular Hemoglobin 29.6 pg (25.0-34.0); Mean Corpuscular Hgb Conc 33.2 g/dL (32.0-36.0); Mean Platelet Volume 11.2 fL (9.4-12.4); Platelet Count 213 K/uL (130-400); RDW Coefficient of Variation 13.8 % (11.5-14.5); Red Blood Count 4.36 M/uL (4.70-6.10); White Blood Count 5.43 K/ul (4.8-10.8)
[2024-06-26 07:20] LABS: BUN Creatinine Ratio 31.1 (10-20); Calcium 8.3 mg/dl (8.6-10.3); Creatinine Clr Calc Pharmacy 95.9 ml/min; Potassium 3.6 mmol/L (3.5-5.1)
[2024-06-26 07:29] LABS: Troponin I High Sensitivity 2021.1 pg/ml (0-20)
--- NOTE | 2024-06-26 08:59 | Cardiology Consultation ---
Date of Consultation June 26, 2024 Assessment & Plan (1) SVT (supraventricular tachycardia): (2) Elevated troponin: Plan Case has been discussed with Dr. Shine. Further recommendations regarding plan of care as per his assessment. I spent a total of 40 minutes on the date of service in preparation, delivery, documentation of the care provided to the patient excluding any time spent in the performance of separately billed services. ALTHEA Knox [facility] Cardiology [facility] Supervising Physician Co-Signing Physician Notes Attending Staff: Patient seen and examined with AP Staff Concur with observations and plans 68 yo man presenting with palpitations and high HR per Apple Watch On Beta blockers - as needed/prn EKG - rate 194 D/C Cardioversion Recent surgical repair of left shoulder/rotator cuff POD#7? ECHO: 06-26-2024 LVEF 60% Normal LV wall thickness No WMA RV normal is size and function No significant valvular disease No Pulmonary Hypertension Hx: PAF/Fluter SVT - s/p cardioversion 2020 Fe Def Plans: * SVT on presentation - * Now Sinus bradycardia * Check TSH * K+ goal 4.5-5 * Mag goal >2 * Consider regular K and Mag supplementation * Troponin elevation s/p cardioversion * Patient's elevation in Troponin appears to be [id number] to what you would expect with a cardioversion * Suspect that patient has "failed" a stress test (given peak HR during arrhythmia was >190). * No reported angina * LVEF is 60% - no WMA * Outpt Cardiac CTA to evaluate for underlying CAD * Check LDL * Follow up with Dr Glaser - explained that future attempts at ablation could lead to pacemaker considerations * 62 min spent addressing challenges, educating and advancing daily plan of care Miguel Shine History of Present Illness Reason for Consultation: SVT Requesting Physician: [facility] hospitalist Attending Physician: Jason Workman MD History of Present Illness HPI: Patient is a 68 year old male with PMHx significant for P. A-fib/flutter on Eliquis, prior SVT requiring DCCV in 2020, SARAY on iron infusions that presented to the ER with complaints of Palpitations and high heart rates (per apple watch). He took a PRN dose of Metoprolol with no relief and presented. Initial EKG demonstrates SVT rates 180's. He underwent successful DCCV. Initial EKG 06/25 @ 1240: SVT Rate 194. Post DCCV 12:55: SB Rate 52bpm. ST depression in lateral leads. EKG 06/25 @ 2329: SB. ST depression in lateral leads now resolved. chest xray negative HST: 76.9/817/22710/2020 Recent shoulder surgery on 06/20/24 Echocardiogram Pending. labs, diagnostics, documentation, telemetry and vitals reviewed. Cardiac Problems: TBS early signs SVT in [facility] ED 06/19/2021 s/p DCCV in the ED-probably was atrial flutter Atrial flutter; on eliquis and PRN metoprolol [id number] 1 (age) MR and TR mild Iron deficiency anemia H/o GIB Allergies Allergy/AdvReac Type Severity Reaction Status Date / Time carbamazepine Allergy Intermediate HIVES Verified 06/21/24 07:13 influenza virus vaccine, Allergy Intermediate PURITIS Verified 06/21/24 07:13 specific AND RASH Pork/Porcine Containing Allergy Verified 06/26/24 08:33 Products monosodium glutamate AdvReac Severe NERVOUS Verified 06/21/24 07:13 morphine AdvReac Severe COULD NOT Verified 06/21/24 07:13 URINATE Home Medications Medication Instructions Recorded Confirmed Type multivitamin 1 tab PO DAILY 04/05/22 06/25/24 History Iron Infusion 1 dose IV Q30D 06/17/24 06/25/24 History apixaban 5 mg tablet (Eliquis) 5 mg PO BID 06/17/24 06/25/24 History vitamin A-vitamin C-vit E-min 1 tab PO QAM 06/17/24 06/25/24 History tablet metoprolol tartrate 25 mg tablet 50 mg PO DAILY PRN Palpitations 06/25/24 06/25/24 History omega-3 fatty acids 1,000 mg 1,000 mg PO BID 06/25/24 06/25/24 History capsule Patient History Medical History (Updated 06/25/24 @ 16:11 by ALTHEA Atkinson) SARAY (iron deficiency anemia) Atrophic gastritis PAF (paroxysmal atrial fibrillation) Spinal stenosis epidural steroid injection "really helped" History of colitis Gastritis AUTO IMMUNE GASTRITIS Low iron receives iron infusions the 14th of every month Hx SBO last episode 2015 History of cardioversion 2020, [facility] History of atrial fibrillation currently on eliquis; f/u [facility] Tachycardia IRREGULAR TACHYCARDIA>HAS PRN MEDICATION TO TX (FOLLOWED BY [facility]) Hypotension SVT (supraventricular tachycardia) hx, no current issues per pt. Surgical History S/P hardware removal right wrist History of open reduction and internal fixation (ORIF) procedure 40 years ago, right wrist>hardware removed S/P epidural steroid injection lumbar H/O shoulder surgery right History of colonoscopy History of esophagogastroduodenoscopy (EGD) History of tooth extraction History of tonsillectomy and adenoidectomy History of cardiac radiofrequency ablation (RFA) ~2013, [facility] [place] [facility] or [facility]; f/u [facility] Hx of knee surgery right Family History Other No family history of adverse response to anesthesia Social History Smoking Status: Former smoker Second Hand Exposure: Yes (hx growing up); Do You Dip or Chew Tobacco: No; Hx Alcohol Use: Yes Alcohol type: hard liquor Hx Substance Use: No Preferred Language: Vietnamese Communication Ability: Effective Acupuncture Physician Required: No Beliefs That Will Affect Care: None Current Living Situation: Spouse Feels Safe at Home: Yes Assistive Devices: None Review of Systems Review of Systems: All systems reviewed & are unremarkable except as noted in HPI & below Physical Exam Physical Exam: No elevation in JVP S1S2 No murmurs CTA B No C/C/E Warm and well-perfused Left upper extremity in a sling Results & Data Vital Signs (Past 12 Hours) Vital Signs Temp Pulse Pulse Resp BP Pulse Ox O2 Del Method 06/26/24 07:30 36.9 C 55 L 20 105/67 96 Room Air 06/26/24 03:37 36.8 C 50 L 18 104/68 95 Room Air 06/25/24 23:13 53 L 06/25/24 22:55 36.8 C 52 L 18 95/58 L 98 Room Air Laboratory Results Cardiac Enzymes 06/25/24 06/25/24 06/25/24 Range/Units 12:40 15:23 20:45 Troponin I High Sens 76.9 H* 817.6 H* D 2274.0 H* D (0-20) pg/ml 06/26/24 Range/Units 06:18 Troponin I High Sens 2021.1 H* (0-20) pg/ml CBC 06/25/24 06/26/24 Range/Units 12:40 06:18 WBC 10.78 5.43 (4.8-10.8) K/ul RBC 5.16 4.36 L (4.70-6.10) M/uL Hgb 15.5 12.9 L (14.0-18.0) g/dl Hct 46.6 38.8 L (42.0-52.0) % Plt Count 302 213 (130-400) K/uL Neut # (Auto) 7.89 H (1.40-6.50) K/uL Lymph # (Auto) 1.91 (1.20-3.40) K/uL [place] # (Auto) 0.73 H (0.11-0.59) K/uL Eos # (Auto) 0.11 (0.00-0.50) K/uL Baso # (Auto) 0.08 (0.00-0.20) K/uL Comprehensive Metabolic Panel 06/25/24 06/26/24 Range/Units 12:40 06:18 Sodium 138 142 (136-145) mmol/L Potassium 4.9 3.6 D (3.5-5.1) mmol/L Chloride 107 112 H (98-107) mmol/L Carbon Dioxide 22 24 (21-32) mmol/L BUN 21 23 (6-23) mg/dl Creatinine 1.27 0.74 D (0.6-1.4) mg/dl Glucose 119 H 105 H (70-99(Fasting)) mg/dl Calcium 9.4 8.3 L (8.6-10.3) mg/dl Intake and Output 06/25/24 06/26/24 06/26/24 22:59 06:59 14:59 Intake Total 800 / 1100 200 / 1100 Balance 800 / 1100 200 / 1100 Intake: IV 600 / 700 Magnesium Sulfate / D5w 1 gm In 100 / 200 100 ml @ 50 mls/hr IV Q30M [facility] Rx#:[id number] Sodium Chloride 0.9% 500 ml @ 500 / 500 999 mls/hr IV .Q31M [facility] Rx#: [id number] Oral 200 / 400 200 / 400 Other: # Unmeasured Voids 1 1 Weight 73 kg 73.5 kg Weight Measurement Method Built in Bedscale Built in [facility] Diagnostic Findings Echocardiogram 06/11/2024 [facility] Interpretation Summary The rhythm during the transthoracic echo examination was sinus bradycardia. The qualitative LV ejection fraction is 55-59% (normal). The left ventricular wall motion is normal. Mild mitral regurgitation is present. Mild tricuspid regurgitation is present. There is no evidence of pulmonary hypertension. The proximal ascending thoracic aorta is mildly enlarged.
[2024-06-26] MEDS: POTASSIUM CHLORIDE CRTAB 20 MEQ TABCR PO ONE (09:21)
[2024-06-26 11:08] VITALS: BP 100/64; PULSE 56; RESP 18; TEMP 98.6; O2SAT 94
--- NOTE | 2024-06-26 11:19 | Electrocardiogram Report ---
Test Reason : Blood Pressure : */* mmHG Vent. Rate : 52 BPM Atrial Rate : 102 BPM P-R Int : 168 ms QRS Dur : 88 ms QT Int : 440 ms P-R-T Axes : 70 68 65 degrees QTcB Int : 409 ms Sinus bradycardia Abnormal ECG When compared with ECG of 25-Jun-2024 12:55, ST no longer depressed in Inferior leads Confirmed by Simeon Medel ([id number]) on 06/26/2024 11:19:41 AM Referred By: REFERRED SELF Confirmed By: Simeon Medel
--- NOTE | 2024-06-26 13:12 | Hospitalist Progress Note ---
Date of Service June 26, 2024 Assessment & Plan (1) SVT (supraventricular tachycardia): (2) Elevated troponin: (3) PAF (paroxysmal atrial fibrillation): Plan: Patient presenting from home for evaluation of palpitations. Patient with a longstanding history of paroxysmal atrial fibrillation/ flutter s/p ablation in 2013 and history of SVT vs. atrial flutter requiring cardioversion in 2020, early signs of TBS. In the ED, patient found to be in SVT vs. rapid atrial flutter with associated hypotension requiring urgent cardioversion. Patient converted to sinus bradycardia with occasional PACs and PVCs. Supraventricular tachycardia Elevated troponin likely demand ischemia secondary to above H/O atrial fibrillation/flutter S/P ablation in 2013 S/P atrial flutter requiring cardioversion in 2020 --S/P cardioversion in ED for atrial flutter, hypertension per record --CXR:No acute cardiopulmonary disease. -- Normal TSH --Potassium levels low normal --ECHO: Left ventricle is normal size. Normal left ventricular wall thickness. Left ventricle wall motion is normal. EF 60%. No significant valvular disease. Appreciate cardiology input: Recommends outpatient CTA to evaluate underlying coronary artery disease. Needs follow-up with EP study as outpatient. Plan to discharge on potassium, magnesium supplements for 1 week as recommended. Continue home [facility] Monitor and replete electrolytes as needed Plan to discharge home today Needs follow-up with cardiology on discharge (4) H/O shoulder surgery: Plan: S/p left shoulder surgery on 06/21/24 No acute issue Follow up with ortho as scheduled (5) Atrophic gastritis: (6) SARAY (iron deficiency anemia): Plan: Receives monthly iron infusions Hb stable DVT Px On Eliquis Admission and Anticipated Discharge Date Admission Date: June 25, 2024 Subjective Patient is seen and examined at bedside Left shoulder pain is controlled Offers no other complaints today Denies any chest pain, dyspnea, dizziness, nausea, vomiting, palpitation, abdominal pain Discussed with cardiology today Eager to get discharged Review of Systems Review of Systems: All systems reviewed & are unremarkable except as noted in Subjective Physical Exam Physical Exam: Physical Exam: Vitals signs as noted above General Appearance:Moderately built and nourished, no apparent distress Head: normocephalic, Atraumatic Eyes: normal inspection, EOMI Neck: supple, Trachea midline Respiratory/Chest: Normal breath sounds, CTA, No accessory muscle use Cardiovascular: S1, S2, No murmur Abdomen/GI:Soft, Non tender, Bowel sounds present Extremities/Musculoskeletal:normal inspection, no edema, LUE in sling Neurologic/Psych:AAOX3, grossly no focal neurological deficits Skin: normal color, warm Results & Data Results & Data Vital Signs (Past 12 Hours) Vital Signs Temp Pulse Resp BP Pulse Ox O2 Del Method 06/26/24 11:06 37.0 C 56 L 18 100/64 94 Room Air 06/26/24 07:30 36.9 C 55 L 20 105/67 96 Room Air 06/26/24 03:37 36.8 C 50 L 18 104/68 95 Room Air Laboratory Results Short CBC 06/25/24 06/26/24 Range/Units 12:40 06:18 WBC 10.78 5.43 (4.8-10.8) K/ul Hgb 15.5 12.9 L (14.0-18.0) g/dl Hct 46.6 38.8 L (42.0-52.0) % Plt Count 302 213 (130-400) K/uL [facility] 06/25/24 06/26/24 12:40 06:18 Sodium 138 142 Potassium 4.9 3.6 D Chloride 107 112 H Carbon Dioxide 22 24 BUN 21 23 Creatinine 1.27 0.74 D Glucose 119 H 105 H Calcium 9.4 8.3 L
--- NOTE | 2024-06-26 13:19 | Discharge Summary ---
Date of Service June 26, 2024 Admission HPI Per Admitting Provider 68-year-old male with PMH paroxysmal atrial fibrillation and atrial flutter anticoagulated on Eliquis, History of ablation in 2013, SVT requiring cardioversion in 2020, early signs of tachybrady syndrome, atropic gastritis, SARAY on iron infusion, and other problems listed below who presents to the ED for evaluation of palpitations. Patient with a longstanding history of paroxysmal atrial fibrillation and atrial flutter. Currently using metoprolol on a as needed basis for palpitations. Patient states he typically requires a dose every 2 months or so. Patient underwent shoulder surgery on 06/21. Overnight on 06/23, patient had episode of palpitations that woke him from sleep. He took a dose of metoprolol and reports his symptoms resolved in about 4 hours. States heart rate typically is in the 50s and when he has an episode of palpitations, heart rate is usually in the 90s. Patient had another episode of palpitations last night, he took a dose of metoprolol again with improvement. However palp itations returned and heart rate was much higher (in the 180s per Apple Watch). patient took another dose of metoprolol however did not have any improvement. He reports associated lightheadedness. No chest pain or shortness of breath. Denies any other recent illnesses, fevers, chills. No abdominal pain, nausea, vomiting, diarrhea. Denies urinary symptoms. In the ED, patient was found to be in SVT with rate in the 180s. He underwent successful cardioversion. Patient is currently in sinus [place] with occasional PVC and PAC. Initial HS troponin 79. Principal Diagnosis Supraventricular tachycardia Discharge Data Allergies Allergy/AdvReac Type Severity Reaction Status Date / Time carbamazepine Allergy Intermediate HIVES Verified 06/21/24 07:13 influenza virus vaccine, Allergy Intermediate PURITIS Verified 06/21/24 07:13 specific AND RASH Pork/Porcine Containing Allergy Verified 06/26/24 08:33 Products monosodium glutamate AdvReac Severe NERVOUS Verified 06/21/24 07:13 morphine AdvReac Severe COULD NOT Verified 06/21/24 07:13 URINATE Consultations 06/25/24 14:37 ED Decision to Admit Stat 06/25/24 14:39 Consult Cardiology Routine Ordered Studies Laboratory Results WBC 5.43 K/ul (4.8-10.8) 06/26/24 06:18 RBC 4.36 M/uL (4.70-6.10) L 06/26/24 06:18 Hgb 12.9 g/dl (14.0-18.0) L 06/26/24 06:18 Hct 38.8 % (42.0-52.0) L 06/26/24 06:18 MCV 89.0 fL (80.0-100.0) 06/26/24 06:18 MCH 29.6 pg (25.0-34.0) 06/26/24 06:18 MCHC 33.2 g/dL (32.0-36.0) 06/26/24 06:18 RDW Std Deviation 45.0 fL (36.4-46.3) 06/26/24 06:18 RDW Coeff of Yoni 13.8 % (11.5-14.5) 06/26/24 06:18 Plt Count 213 K/uL (130-400) 06/26/24 06:18 MPV 11.2 fL (9.4-12.4) 06/26/24 06:18 Immature Gran % (Auto) 0.6 % 06/25/24 12:40 Neut % (Auto) 73.2 % 06/25/24 12:40 Lymph % (Auto) 17.7 % 06/25/24 12:40 [place] % (Auto) 6.8 % 06/25/24 12:40 Eos % (Auto) 1.0 % 06/25/24 12:40 Baso % (Auto) 0.7 % 06/25/24 12:40 Neut # (Auto) 7.89 K/uL (1.40-6.50) H 06/25/24 12:40 Lymph # (Auto) 1.91 K/uL (1.20-3.40) 06/25/24 12:40 [place] # (Auto) 0.73 K/uL (0.11-0.59) H 06/25/24 12:40 Eos # (Auto) 0.11 K/uL (0.00-0.50) 06/25/24 12:40 Baso # (Auto) 0.08 K/uL (0.00-0.20) 06/25/24 12:40 Immature Gran # (Auto) 0.06 K/uL (0.01-0.20) 06/25/24 12:40 Sodium 142 mmol/L (136-145) 06/26/24 06:18 Potassium 3.6 mmol/L (3.5-5.1) D 06/26/24 06:18 Chloride 112 mmol/L (98-107) H 06/26/24 06:18 Carbon Dioxide 24 mmol/L (21-32) 06/26/24 06:18 Anion Gap 6 (3-11) 06/26/24 06:18 BUN 23 mg/dl (6-23) 06/26/24 06:18 Creatinine 0.74 mg/dl (0.6-1.4) D 06/26/24 06:18 Est Cr Clr Drug Dosing 95.9 ml/min 06/26/24 06:18 eGFR 97.48 06/26/24 06:18 BUN/Creatinine Ratio 31.1 (10-20) H 06/26/24 06:18 Glucose 105 mg/dl (70-99(Fasting)) H 06/26/24 06:18 Calcium 8.3 mg/dl (8.6-10.3) L 06/26/24 06:18 Magnesium 2.1 mg/dl (1.7-2.4) 06/25/24 12:40 Troponin I High Sens 1599.9 pg/ml (0-20) H* D 06/26/24 10:50 TSH 1.158 uIu/ml (0.300-4.500) 06/26/24 06:18 Hepatitis C Ab Screen Negative (Negative) 06/26/24 06:18 Impressions Chest X-Ray 06/25/24 13:32 EXAM: Radiograph of the Chest 1 View INDICATION: SVT TECHNIQUE: Frontal view of the chest. COMPARISON: No relevant prior studies available. FINDINGS: Lungs and pleural spaces: No consolidation or pulmonary edema. No pleural effusion or pneumothorax. Heart: Prominent cardiac shadow accentuated by technique. Normal shape and configuration. Mediastinum: Normal contour. Bones/joints: Degenerative changes noted throughout the spine. No acute osseous abnormality seen. Postoperative deformity right distal clavicle. Soft tissues: No abnormality noted. No radiopaque foreign body noted. Upper abdomen: No abnormality noted. IMPRESSION: No acute cardiopulmonary disease. ACT 112: Negative or not required by law. Electronically signed by Malou Deleon 06-25-2024 13:54 PM Hospital Course (1) SVT (supraventricular tachycardia): (2) Elevated troponin: (3) PAF (paroxysmal atrial fibrillation): Patient presenting from home for evaluation of palpitations. Patient with a longstanding history of paroxysmal atrial fibrillation/ flutter s/p ablation in 2013 and history of SVT vs. atrial flutter requiring cardioversion in 2020, early signs of TBS. In the ED, patient found to be in SVT vs. rapid atrial flutter with associated hypotension requiring urgent cardioversion. Patient converted to sinus bradycardia with occasional PACs and PVCs. Supraventricular tachycardia Elevated troponin likely demand ischemia secondary to above H/O atrial fibrillation/flutter S/P ablation in 2013 S/P atrial flutter requiring cardioversion in 2020 --S/P cardioversion in ED for atrial flutter, hypertension per record --CXR:No acute cardiopulmonary disease. -- Normal TSH --Potassium levels low normal --ECHO: Left ventricle is normal size. Normal left ventricular wall thickness. Left ventricle wall motion is normal. EF 60%. No significant valvular disease. Appreciate cardiology input: Recommends outpatient CTA to evaluate underlying coronary artery disease. Needs follow-up with EP study as outpatient. Plan to discharge on potassium, magnesium supplements for 1 week as recommended. Continue home Eliquis Monitor and replete electrolytes as needed Plan to discharge home today Needs follow-up with cardiology on discharge (4) H/O shoulder surgery: S/p left shoulder surgery on 06/21/24 No acute issue Follow up with ortho as scheduled (5) Atrophic gastritis: (6) SARAY (iron deficiency anemia): Receives monthly iron infusions Hb stable DVT Px On Eliquis Total Time Total Time Spent Total Time Spent (In Minutes): 45 minutes Discharge Plan Discharge Items Patient Disposition: Home - Self-Care Reason For Visit: SVT Discharge Diagnosis: Supraventricular tachycardia Activity: Per Instructions section Exercise/Sports: Wait until after follow-up appointment Non-emergency contact: Primary Care Provider, Surgeon and Registered Dental Assistant Rda Call non-emergency contact if: you have any medication questions, your symptoms worsen, your pain is concerning for you and you have a fever Follow-up/Referrals: Jacob Diaz MD [Primary Care Provider] - Diet: Heart Healthy Addtl Attending Provider Instructions: Follow-up with your primary care physician in 1 week Follow-up with your heating worker as recommended -- Start taking potassium and magnesium supplements as prescribed for 1 week as recommended by your heating worker. Seek immediate medical attention if your symptoms reoccur or worsen Please take all medications as instructed on discharge list below. Please call if you have any questions or problems. You can reach a [facility] hospitalist on duty at [facility] 24 hours a day by calling [phone] Pending Studies at Discharge: No Stand-Alone Forms: My [facility], Smoking Cessation Medications and DC Order Prescriptions: New potassium chloride 20 mEq tablet extended release 20 meq PO DAILY Qty: 7 0RF magnesium oxide 400 mg magnesium capsule 400 mg PO DAILY Qty: 7 0RF Continued multivitamin Tablet 1 tab PO DAILY vitamin A-vitamin C-vit E-min Tablet 1 tab PO QAM Eliquis 5 mg Tablet 5 mg PO BID Iron Infusion 1 dose IV Q30D Patient Comments: always 14th of every month metoprolol tartrate 25 mg tablet 50 mg PO DAILY PRN (Reason: Palpitations) omega-3 fatty acids 1,000 mg Capsule 1,000 mg PO BID Discharge Orders: Discharge Order (Routine); Ordered 06/26/24 Ordered By: Jason Workman Admission Data Admit Date/Time: 06/25/24 14:40 Attending Provider: Jason Workman Admit Provider: Anabel Gonzalez Primary Care Provider: Jacob Diaz Other Providers: Anabel Gonzalez Other Interventions: Discharge Summary Assessment (RN) Last Done: 06/26/24 13:07
== END 2024-06-26 13:33 | disposition home or self-care (01) | DRG 309 ==
LOC: ED 12:27 → 2S 14:40 → SUATTDRO 14:40 → 2S 16:46